=== PATIENT | female | born 1945 | race Caucasian/White ===

== ENCOUNTER → 2017-03-02 | Outpatient (REF) | payer MEDICARE, MEDICAID ==
[2016-10-05 08:12] VITALS: BMI 28.6
[~2017-03-02] MED LIST: ACET-1966 PO; ACET-2007 PO; AMOX1TAB9 PO; ASPI-764 PO; ATOR10TA65 PO; BENZ1LOZ PO; BISA10SU66 PR; CEF300 PO; CEPH-13 PO; CIPR-214 PO; CYC10 PO; DICL-195 PO; DOCU-202 PO; DRON2.5C11 PO; FLUC100T39 PO; GABA-549 PO; HUM100VI2 SUBQ; INDO-1 PO; INSU100V24 SQ; INSU100V24 SUBQ; LIDO76.5 TOP; LOR5/325 PO; MAGN400T36 PO; MELA1TAB38; MELA3TAB PO; METF-410 PO; MOM PO; MULT-1335 PO; NATURAL PO; NYST60PO9 TP; OMEP-125 PO; OMEP-137 PO; ONDA4TAB PO; ONDA4TAB9 PO; OXYC-717 PO; OXYC-865 PO; OXYGENHOME INH; PANT40TA65 PO; PER PO; POLY17PO21 PO; POTA20TA94 PO; PROM12.556 PO; RENATROPHIN PO; SCOT TD; SENN8.6T34 PO; THIA100T58 PO; TRAM-420 PO; TRAM-627 PO; TRAM100T22 PO; [UNRECOGNIZED DRUG - CODE] TP; [UNRECOGNIZED DRUG - OTHER] PO; [UNRECOGNIZED DRUG - OTHER] PO
[2017-03-02 16:18] LABS: LDL CHOLESTEROL 77 mg/dl
== END ==
LOC: ZZLCC 15:41
PROVIDERS: ATTEND Nurse Practitioner Family
DX: D64.9 Anemia, unspecified (principal); E11.9 Type 2 diabetes mellitus without complications
CPT/HCPCS: 82040; 82247; 82310; 82374; 82435; 82465; 82565; 82947; 83036; 83718; 84075; 84132; 84155; 84295; 84443; 84450; 84460; 84478; 84520; 85027

== ENCOUNTER → 2017-06-09 | Outpatient (REF) | payer MEDICARE, MEDICAID ==
[2016-10-05 08:12] VITALS: BMI 28.6
[~2017-06-09] MED LIST changes: -TRAM100T22 PO; +TRAM100T8 PO
[2017-06-09 11:15] LABS: LDL CHOLESTEROL 67 mg/dl
== END ==
LOC: ZZLCC 10:43
PROVIDERS: ATTEND Nurse Practitioner Family
DX: E78.5 Hyperlipidemia, unspecified (principal); E11.9 Type 2 diabetes mellitus without complications
CPT/HCPCS: 82040; 82247; 82310; 82374; 82435; 82465; 82565; 82947; 83036; 83718; 84075; 84132; 84155; 84295; 84450; 84460; 84478; 84520

== ENCOUNTER → 2017-10-11 | Outpatient (REF) | payer MEDICARE, MEDICAID ==
[2016-10-05 08:12] VITALS: BMI 28.6
[~2017-10-11] MED LIST changes: -INDO-1 PO; +INDO-21 PO; -METF-410 PO; +METF-411 PO; +THIA100T20 PO; -THIA100T58 PO
[2017-10-11 12:12] LABS: PLATELET COUNT, AUTOMATED 169 K/uL (150-450)
== END ==
LOC: ZZLCC 11:38
PROVIDERS: ATTEND Nurse Practitioner Family
DX: E11.9 Type 2 diabetes mellitus without complications (principal); E78.5 Hyperlipidemia, unspecified; Z79.899 Other long term (current) drug therapy
CPT/HCPCS: 82040; 82247; 82310; 82374; 82435; 82465; 82565; 82947; 83036; 83718; 84075; 84132; 84155; 84295; 84450; 84460; 84478; 84520; 85025

== ENCOUNTER → 2017-11-08 | Outpatient (REF) | payer MEDICARE, MEDICAID ==
[2016-10-05 08:12] VITALS: BMI 28.6
[~2017-11-08] MED LIST changes: -METF-411 PO; +METF-450 PO
== END ==
LOC: ZZLCC 08:58
PROVIDERS: ATTEND Nurse Practitioner Family
DX: R10.13 Epigastric pain (principal)
CPT/HCPCS: 82040; 82150; 82247; 82310; 82374; 82435; 82565; 82947; 83690; 84075; 84132; 84155; 84295; 84450; 84460; 84520; 85027

== ENCOUNTER → 2017-12-18 | Outpatient (CLI) | payer MEDICARE, MEDICAID ==
[2016-10-05 08:12] VITALS: BMI 28.6
--- NOTE | 2017-12-18 14:12 | RADIOLOGY IMAGING REPORT ---
FACILITY: [facility] PATIENT NAME: Kaitlynn Echeverria : 1945 MR: [id number] V: [id number] EXAM DATE: ORDERING PHYSICIAN: TITA RANKIN TECHNOLOGIST: Location: [facility] Patient: Kaitlynn Echeverria : 1945 Visit/Account:[id number] Date of Sevice: 12/18/2017 WRIST LEFT MIN 3 VIEW COMPARISON: None HISTORY: Left wrist pain for three days with no known injury TECHNIQUE: 3 views of the left wrist were obtained. FINDINGS: BONES: Demineralized suggesting osteopenia or osteoporosis. There is a mild spurring at the distal pole of the scaphoid and there is moderate degenerative narrowing at the triscaphe joint, advanced de generative narrowing at the first CMC joint with [id number] apposition and mild diffuse spurring an d subchondral sclerosis noted. Normal carpal alignment. SOFT TISSUES: Mild generalized soft tissue swelling. Soft tissue calcifications in the projection o f the scapholunate ligament and TFCC which can be seen in the setting of CPPD arthropathy. OTHER: Negative. IMPRESSION: 1. Demineralized bones suggesting osteopenia versus osteoporosis. 2. Moderate degenerative changes at the triscaphe and first CMC joints of the left wrist. 3. Soft tissue calcifications which raises the possibility of CPPD arthropathy. Report Dictated By: Diego Rossi at 12/18/2017 2:06 PM Report E-Signed By: Diego Rossi at 12/18/2017 2:08 PM WSN:[email or web address]
== END ==
LOC: RAD 13:09
PROVIDERS: ATTEND Nurse Practitioner Family
DX: M19.032 Primary osteoarthritis, left wrist (principal)

== ENCOUNTER → 2017-12-20 | Outpatient (REF) | payer MEDICARE, MEDICAID ==
[2016-10-05 08:12] VITALS: BMI 28.6
[~2017-12-20] MED LIST changes: +POLY17PO11 PO; -POLY17PO21 PO; -SENN8.6T34 PO; +SENN8.6T35 PO
[2017-12-20 13:25] LABS: PLATELET COUNT, AUTOMATED 153 K/uL (150-450)
== END ==
LOC: ZZLCC 13:11
PROVIDERS: ATTEND Nurse Practitioner Family
DX: M25.511 Pain in right shoulder (principal); M25.561 Pain in right knee; M25.562 Pain in left knee; G47.00 Insomnia, unspecified; K59.09 Other constipation; L89.302 Pressure ulcer of unspecified buttock, stage 2; R62.7 Adult failure to thrive; R53.1 Weakness; R25.1 Tremor, unspecified; M25.50 Pain in unspecified joint; M15.0 Primary generalized (osteo)arthritis; R49.8 Other voice and resonance disorders; E11.9 Type 2 diabetes mellitus without complications
CPT/HCPCS: 85025

== ENCOUNTER 2018-01-08 12:56 | Inpatient (IN) | payer MEDICARE, MEDICAID ==
[2016-10-05 08:12] VITALS: Ht 172.7 cm; Wt 97.1 kg
[~2018-01-08] VITALS: Ht 172.7 cm; Wt 97.1 kg
[2018-01-08] VITALS (32 sets, daily range): BP systolic 80–123; BP diastolic 38–68
[~2018-01-08 12:56] MED LIST changes: -CARB-71 PO; -CEPH500C24 PO; -DICL100G39 TOP; -POLY17PO25 PO; -[UNRECOGNIZED DRUG - OTHER] PO
--- NOTE | 2018-01-08 12:58 | ER Report ---
History and Physical Time Seen By MD: 12:59 HPI/ROS CHIEF COMPLAINT: Altered mental status HISTORY OF PRESENT ILLNESS: Patient is a 72-year-old female resident of [facility] who was sent from the nursing facility for evaluation for possible sepsis. Over the past 2 days patient has had decreased level of alertness and today started having fever to 103. According to the nursing staff patient usually is conversant and oriented but she is completely unresponsive at this point. To assisted paperwork patient is full code. She needs assistance with most activities daily living but is completely dependent on others for bathing. Patient here is nonverbal. She is unable to provide any useful history. REVIEW OF SYSTEMS: Limited as patient is nonverbal Constitutional: Fever Respiratory: Nursing staff state increased O2 requirements Skin: Sacral decub Allergies: Coded Allergies: Influenza Virus Vaccines (Verified Adverse Reaction, Mild, "I GET EXTREMLY ILL", 02/19/15) Home Meds Active Scripts Tramadol Hcl (TRAMADOL HCL) 50 Mg Tablet, 2 TAB PO BID, #120 TAB 5 Refills Prov:TITA RANKIN APRN FOREIGN EXCHANGE DEALER-C 11/08/17 Cefdinir 300 Mg Cap (OMNICEF 300 MG CAP (OR EQUIV)) 300 Mg Cap, 300 MG PO BID, #10 CAP Prov:DARCIE HE DO 10/07/16 Reported Medications Metformin Hcl (METFORMIN HCL) 500 Mg Tablet, 1 TAB PO BID, TAB 01/15/17 Multivitamin With Minerals (MULTIPLE VITAMIN) 1 Each Tablet, 1 EACH PO DAILY, TAB 10/04/16 Sennosides (SENNA) 8.6 Mg Tablet, 17.2 MG PO m,w,f 10/04/16 Acetaminophen (TYLENOL) 325 Mg Tablet, 650 MG PO Q4H PRN for pain, TAB 10/04/16 Dimethicone/Zinc Oxide (CHARISMA PROTECT CREAM) 142 Gm Cream..g., 142 GM TP bid and prn charisma protect moisture barrier cream to buttock and norbert area BID and prn 10/04/16 Nystatin (NYSTOP) 60 Gm Powder, 60 GM TP BID 10/04/16 Insulin NPH Hum/Reg Insulin Hm (Humulin 70-30 Vial) 100 Unit/Ml (70-30) Vial, 8 UNIT SUBQ with lunch 10/04/16 Melatonin (Melatin) 3 Mg Tablet, 1 TAB PO QHS 10/04/16 [natural ] 1 TAB No Conflict Check, PO BID Medication is called: Natural Neuro Support 10/04/16 Ondansetron (ZOFRAN ODT) 4 Mg Tab.rapdis, 4 MG PO Q12H PRN for NAUSEA, TAB.WILBUR 10/04/16 Atorvastatin Calcium (ATORVASTATIN CALCIUM) 10 Mg Tablet, 1 TAB PO QHS, TAB 10/04/16 Gabapentin (GABAPENTIN) 300 Mg Capsule, 300 MG PO TID, CAPSULE 10/04/16 Omeprazole (OMEPRAZOLE) 20 Mg Capsule.dr, 1 CAP PO QDAY, CAP 10/04/16 Past Medical/Surgical History Patient has a past medical history for stroke in November 2014 history of pneumon ia, history of acute renal failure, history of gout, history of type II diabetes, history of anemia. Patient has a history of cholecystectomy and tubal ligation. Resides at the [facility]. Hx Smoking: No Smoking Status: Never Smoker Hx Substance Use Disorder: No Hx Alcohol Use: No Constitutional Vital Sign - Last 24 Hours 01/08/18 01/08/18 01/08/18 01/08/18 12:56 12:58 13:00 13:11 Pulse 98 98 97 Resp 14 20 15 B/P (MAP) 75/39 75/39 (51) Pulse Ox 92 92 92 O2 Delivery Nasal Cannula Nasal Cannula 01/08/18 01/08/18 01/08/18 01/08/18 13:15 13:26 13:30 13:41 Temp 101.5 Pulse 93 89 Resp 15 12 B/P (MAP) 82/46 (58) 79/49 (59) Pulse Ox 94 93 O2 Delivery Nasal Cannula 01/08/18 01/08/18 01/08/18 01/08/18 13:45 13:50 13:55 13:56 Pulse 91 89 Resp 15 14 B/P (MAP) 80/48 (59) 80/49 (59) Pulse Ox 93 94 O2 Delivery Nasal Cannula 01/08/18 01/08/18 14:00 14:05 Pulse 88 88 Resp 14 14 B/P (MAP) 80/48 (59) 85/53 (64) Pulse Ox 94 95 O2 Delivery Nasal Cannula Nasal Cannula Physical Exam General Appearance: The patient is unresponsive but awake and no obvious signs for airway compromise or respiratory failure Eyes: Pupils equal and round no pallor or injection. ENT, Mouth: Mucous membranes are moist. Dry Respiratory: Lung sounds are distant but no obvious wheezes or rales Cardiovascular: Regular rate and rhythm. Gastrointestinal: Abdomen is soft, protuberant, no masses, bowel sounds normal. Neurological: Patient is obtunded Skin: Hot and dry, stage II sacral decubitus ulcer with surrounding erythema Musculoskeletal: Neck is supple non tender. Extremities are nontender, nonswollen and have full range of motion. Medical Decision Making Data Points Result Diagram: 01/08/18 1252 01/08/18 1252 Laboratory Hematology Test 01/08/18 12:52 01/08/18 13:19 01/08/18 13:26 01/08/18 13:27 Red Blood Count 4.08 M/uL (4.17-5.56) Mean Corpuscular Volume 85.7 fL (80.0-96.0) Mean Corpuscular Hemoglobin 28.1 pg (26.0-33.0) Mean Corpuscular Hemoglobin Concent 32.8 g/dL (32.0-36.0) Red Cell Distribution Width 14.5 % (11.5-14.5) Mean Platelet Volume 6.7 fL (7.2-11.1) Neutrophils (%) (Auto) 93.0 % (39.4-72.5) Lymphocytes (%) (Auto) 2.5 % (17.6-49.6) Monocytes (%) (Auto) 4.4 % (4.1-12.4) Eosinophils (%) (Auto) 0.0 % (0.4-6.7) Basophils (%) (Auto) 0.1 % (0.3-1.4) Nucleated RBC Relative Count (auto) 0.0 /100WBC Neutrophils # (Auto) 17.5 K/uL (2.0-7.4) Lymphocytes # (Auto) 0.5 K/uL (1.3-3.6) Monocytes # (Auto) 0.8 K/uL (0.3-1.0) Eosinophils # (Auto) 0.0 K/uL (0.0-0.5) Basophils # (Auto) 0.0 K/uL (0.0-0.1) Nucleated RBC Absolute Count (auto) 0.00 K/uL Prothrombin Time 15.9 seconds (12.0-14.4) Prothromb Time International Ratio 1.26 Activated Partial Thromboplast Time 37 seconds (23-35) Sodium Level 141 mmol/L (137-145) Potassium Level 5.3 mmol/L (3.5-5.0) Chloride Level 107 mmol/L (98-107) Carbon Dioxide Level 27 mmol/L (22-31) Blood Urea Nitrogen 34 mg/dl (7-18) Creatinine 1.70 mg/dl (0.52-1.04) Glomerular Filtration Rate Calc 29.6 Random Glucose 198 mg/dl (75-110) Lactate 1.1 mmol/L (0.7-2.1) Calcium Level 8.4 mg/dl (8.4-10.2) Total Bilirubin 0.6 mg/dl (0.2-1.3) Aspartate Amino Transf (AST/SGOT) 27 U/L (0-35) Alanine Aminotransferase (ALT/SGPT) 16 U/L (0-56) Alkaline Phosphatase 78 U/L (0-126) Total Creatine Kinase 359 U/L (30-135) Total Protein 5.6 g/dl (6.3-8.2) Albumin 2.7 g/dl (3.5-5.0) Stool Occult Blood (IFOB) Negative (NEGATIVE) Influenza Virus Type A (PCR) Negative (NEGATIVE) Influenza Virus Type B (PCR) Negative (NEGATIVE) Urine Color Johana Urine Clarity Turbid Urine pH 5.0 pH (4.8-9.5) Urine Specific [place] 1.021 Urine Protein 100 mg/dL (NEGATIVE) Urine Glucose (UA) Negative mg/dL (NEGATIVE) Urine Ketones Trace mg/dL (NEGATIVE) Urine Blood Moderate (NEGATIVE) Urine Nitrite Negative (NEGATIVE) Urine Bilirubin Small (NEGATIVE) Urine Urobilinogen 4.0 mg/dL (0.2-1.9) Urine Leukocyte Esterase Moderate (NEGATIVE) Urine RBC 75 /HPF (0-2/HPF) Urine WBC 1093 /HPF (0-5/HPF) Urine WBC Clumps Many /HPF Urine Squamous Epithelial Cells Many /LPF (NONE-FEW) Urine Bacteria Many /HPF (NONE-FEW) Urine Mucus None /HPF (NONE-FEW) Chemistry Test 01/08/18 12:52 01/08/18 13:19 01/08/18 13:26 11/27/18 13:27 White Blood Count 18.8 k/uL (4.5-11.0) Red Blood Count 4.08 M/uL (4.17-5.56) Hemoglobin 11.5 g/dL (12.0-16.0) Hematocrit 35.0 % (34.0-47.0) Mean Corpuscular Volume 85.7 fL (80.0-96.0) Mean Corpuscular Hemoglobin 28.1 pg (26.0-33.0) Mean Corpuscular Hemoglobin Concent 32.8 g/dL (32.0-36.0) Red Cell Distribution Width 14.5 % (11.5-14.5) Platelet Count 151 K/uL (150-450) Mean Platelet Volume 6.7 fL (7.2-11.1) Neutrophils (%) (Auto) 93.0 % (39.4-72.5) Lymphocytes (%) (Auto) 2.5 % (17.6-49.6) Monocytes (%) (Auto) 4.4 % (4.1-12.4) Eosinophils (%) (Auto) 0.0 % (0.4-6.7) Basophils (%) (Auto) 0.1 % (0.3-1.4) Nucleated RBC Relative Count (auto) 0.0 /100WBC Neutrophils # (Auto) 17.5 K/uL (2.0-7.4) Lymphocytes # (Auto) 0.5 K/uL (1.3-3.6) Monocytes # (Auto) 0.8 K/uL (0.3-1.0) Eosinophils # (Auto) 0.0 K/uL (0.0-0.5) Basophils # (Auto) 0.0 K/uL (0.0-0.1) Nucleated RBC Absolute Count (auto) 0.00 K/uL Prothrombin Time 15.9 seconds (12.0-14.4) Prothromb Time International Ratio 1.26 Activated Partial Thromboplast Time 37 seconds (23-35) Glomerular Filtration Rate Calc 29.6 Lactate 1.1 mmol/L (0.7-2.1) Calcium Level 8.4 mg/dl (8.4-10.2) Total Bilirubin 0.6 mg/dl (0.2-1.3) Aspartate Amino Transf (AST/SGOT) 27 U/L (0-35) Alanine Aminotransferase (ALT/SGPT) 16 U/L (0-56) Alkaline Phosphatase 78 U/L (0-126) Total Creatine Kinase 359 U/L (30-135) Total Protein 5.6 g/dl (6.3-8.2) Albumin 2.7 g/dl (3.5-5.0) Stool Occult Blood (IFOB) Negative (NEGATIVE) Influenza Virus Type A (PCR) Negative (NEGATIVE) Influenza Virus Type B (PCR) Negative (NEGATIVE) Urine Color Johana Urine Clarity Turbid Urine pH 5.0 pH (4.8-9.5) Urine Specific [place] 1.021 Urine Protein 100 mg/dL (NEGATIVE) Urine Glucose (UA) Negative mg/dL (NEGATIVE) Urine Ketones Trace mg/dL (NEGATIVE) Urine Blood Moderate (NEGATIVE) Urine Nitrite Negative (NEGATIVE) Urine Bilirubin Small (NEGATIVE) Urine Urobilinogen 4.0 mg/dL (0.2-1.9) Urine Leukocyte Esterase Moderate (NEGATIVE) Urine RBC 75 /HPF (0-2/HPF) Urine WBC 1093 /HPF (0-5/HPF) Urine WBC Clumps Many /HPF Urine Squamous Epithelial Cells Many /LPF (NONE-FEW) Urine Bacteria Many /HPF (NONE-FEW) Urine Mucus None /HPF (NONE-FEW) Coagulation Test 01/08/18 12:52 Prothrombin Time 15.9 seconds Prothromb Time International Ratio 1.26 Activated Partial Thromboplast Time 37 seconds Urinalysis Test 01/08/18 13:27 Urine Color Johana Urine Clarity Turbid Urine pH 5.0 pH (4.8-9.5) Urine Specific [place] 1.021 Urine Protein 100 mg/dL (NEGATIVE) Urine Glucose (UA) Negative mg/dL (NEGATIVE) Urine Ketones Trace mg/dL (NEGATIVE) Urine Blood Moderate (NEGATIVE) Urine Nitrite Negative (NEGATIVE) Urine Bilirubin Small (NEGATIVE) Urine Urobilinogen 4.0 mg/dL (0.2-1.9) Urine Leukocyte Esterase Moderate (NEGATIVE) Urine RBC 75 /HPF (0-2/HPF) Urine WBC 1093 /HPF (0-5/HPF) Urine WBC Clumps Many /HPF Urine Squamous Epithelial Cells Many /LPF (NONE-FEW) Urine Bacteria Many /HPF (NONE-FEW) Urine Mucus None /HPF (NONE-FEW) EKG/Imaging EKG Interpretation EKG shows sinus rhythm with a ventricular rate of 94 bpm. Monitor Interpretation: Normal Sinus Rhythm ED Course/Re-evaluation Clinical Indication for ER IV: IV Access ED Course 01/08/2018 1:36:15 pm plan at this time will be to initiate sepsis protocol we will give 30 mL/kg bolus of normal saline. We will give her broad-spectrum antibiotics we will draw blood cultures urine culture and chest x-ray. 01/08/2018 2:22:49 pm Procedure: Central line placement. Procedure is emergent; maximal sterile barrier technique was uses including cap, gown, sterile gloves, large sheet, hand washing and chlorhexidine prep. The area anesthetized with 1% lidocaine. The right internal jugular vein approach using ultrasound guidance was done. Multiple attempts attempts were made however it appeared based on the pulsatile blood flow and color blood that the internal carotid artery was mistakenly cannulated instead of the internal jugular. Despite different positioning attempts to continue use of the ultra sound the result was the same each time the blood appeared arterial. We felt that the we were in the correct spot as we clearly could identify the pulsatile internal carotid artery on ultrasound as well as the ovoid shaped compressible internal jugular vein. Unfortunately we are unable to obtain central venous access. Because we are unable to achieve access and multiple attempts being made and we decided to hold off on further attempts as this could be harmful to the patient. Postop. Chest x-ray was performed no PTX was seen. Patient was started on 5 mics of levophed peripherally with improvement in blood pressure and mentation. Daughter at the bedside and has been made aware of scenario and that she will be admitted to the ICU. Case was discussed with DR He, history, PE., Labs, imaging studies and entire ED course including failed central line and that we started peripheral levophed at 5 mcg/min Decision to Disposition Date: Jan 08, 2018 Decision to Disposition Time: 14:58 Depart Departure Latest Vital Signs Vital Signs Date Time Temp Pulse Resp B/P (MAP) Pulse Ox O2 Delivery O2 Flow Rate FiO2 01/08/18 14:05 88 14 85/53 (64) 95 Nasal Cannula 01/08/18 13:41 101.5 Impression: Primary Impression: Sepsis Condition: Improved Disposition: Admitted from ER (to ICU with DR He) Referrals: DENZEL MOTA MD (PCP) Problem Qualifiers Primary Impression: Sepsis Sepsis type: sepsis due to unspecified organism Qualified Codes: A41.9 - Sepsis, unspecified organism BLU DUNN MD Jan 08, 2018 12:58
[2018-01-08] MEDS ORDERED: ACETAMINOPHEN 120 MG SUPP PR ONE (13:16)
[2018-01-08] MEDS ORDERED: CEFEPIME HCL 2 GM VIAL IVP ONE (13:20)
[2018-01-08] MEDS ORDERED: VANCOMYCIN 1 GM ADDVIAL 1 GM in NS(*) 0.9% 250 ML ADDVAN BAG 250 ML IVPB ONE (13:20)
[2018-01-08] MEDS ORDERED: metroNIDAZOLE* 500MG/100ML BAG 100 ML IVPB ONE (13:20)
[2018-01-08 13:27] LABS: PLATELET COUNT, AUTOMATED 151 K/uL (150-450)
--- NOTE | 2018-01-08 13:28 | EKG ---
FACILITY: [facility] PATIENT NAME: MAURA HORN : [id number] MR: [id number] V: [id number] EXAM DATE: ORDERING PHYSICIAN: BLU DUNN TECHNOLOGIST: Test Reason : Blood Pressure : / mmHG Vent. Rate : 094 BPM Atrial Rate : 094 BPM P-R Int : 150 ms QRS Dur : 086 ms QT Int : 362 ms P-R-T Axes : 069 020 052 degrees QTc Int : 452 ms Normal sinus rhythm Normal ECG When compared with ECG of 05-OCT-2016 10:59, Vent. rate has increased BY 37 BPM Confirmed by DARCIE HE ([id number]) on 01/09/2018 6:20:15 AM Referred By: Confirmed By:DARCIE HE
[2018-01-08 13:41] LABS: INR 1.26
[2018-01-08] MEDS ORDERED: EMS NS 0.9%(*) 1000 ML BAG 1,000 ML IV ONE (14:00)
[2018-01-08] MEDS ORDERED: NS(*) 0.9% 1000 ML BAG 1,000 ML IV ONE ×4 (14:00→17:15)
[2018-01-08] MEDS ORDERED: NOREPINE BITAR* 4 MG/4 ML AMP 8 MG in D5W(*) 500 ML BAG 492 ML IV PRN ×2 (14:10→14:15)
[2018-01-08] MEDS ORDERED: VANCOMYCIN(*) 1 GM VIAL 1 GM, VANCOMYCIN (*) 0.5 GM VIAL 0.5 GM in NS(*) 0.9% 250 ML BA... IVPB ONE (14:45)
--- NOTE | 2018-01-08 15:09 | RADIOLOGY IMAGING REPORT ---
FACILITY: [facility] PATIENT NAME: Kaitlynn Echeverria : 1945 MR: [id number] V: [id number] EXAM DATE: ORDERING PHYSICIAN: BLU DUNN TECHNOLOGIST: Location: [facility] Patient: Kaitlynn Echeverria : 1945 Visit/Account:[id number] Date of Sevice: 01/08/2018 Exam type: CHEST SINGLE AP History: SEPSIS Comparison: October 03, 2016. Findings: There is patchy airspace consolidation in the medial left lung base which was not present previously. Prominent central pulmonary arteries again seen. There is cardiomegaly present with moderate ectas ia the thoracic aorta. The mediastinum also appears somewhat widened. This could be related to this supine portable nature of the examination although an upright AP or PA view the chest is recommended for further evaluation IMPRESSION: 1. Patchy airspace consolidation the medial left lung base worrisome for infiltrate and/or atelectas is The mediastinum appears widened which could be related to technical factors however a repeat upright PA or AP view the chest recommended Results were called to BLU DUNN at 01/08/2018 3:05 PM. Report Dictated By: Verona Hagen MD at 01/08/2018 3:01 PM Report E-Signed By: Verona Hagen MD at 01/08/2018 3:05 PM WSN:[email or web address]
--- NOTE | 2018-01-08 15:31 | RADIOLOGY IMAGING REPORT ---
FACILITY: [facility] PATIENT NAME: Kaitlynn Echeverria : 1945 MR: [id number] V: [id number] EXAM DATE: [id number] ORDERING PHYSICIAN: BLU DUNN TECHNOLOGIST: Location: [facility] Patient: Kaitlynn Echeverria : 1945 Visit/Account:[id number] Date of Sevice: 01/08/2018 Exam type: CHEST SINGLE AP History: Repeat for mediastinal widening and attempted right IJ placement Comparison: January 08, 2018 at 2:15 PM. Findings: Repeat portable upright AP view the chest reveals mild consolidation in the medial left lung base lik ben related to infiltrate and/or atelectasis. There is no evidence of a pneumothorax. The cardiac s ilhouette now appears normal in size. The mediastinum appears less widened which was likely related to the supine nature of the examination on the previous study. IMPRESSION: 1. Small amount of airspace consolidation in the medial left lung base likely related infiltrate and /or atelectasis No evidence of pneumothorax Mediastinum appears less widened and was likely related to the supine nature the prior examination Report Dictated By: Verona Hagen MD at 01/08/2018 3:25 PM Report E-Signed By: Verona Hagen MD at 01/08/2018 3:27 PM WSN:[email or web address]
[2018-01-08] MEDS ORDERED: NOREPINE BITAR* 4 MG/4 ML AMP 4 MG in D5W(*) 250 ML BAG 246 ML IV PRN (16:55)
--- NOTE | 2018-01-08 17:11 | History & Physical ---
History of Present Illness Chief Complaint Altered mental status History of Present Illness This patient did present with reports of altered mental status. Her daughter reports that she was acting normal last night. She is not complaining of any specific symptoms, but the daughter reports that she has been coughing more frequently. History Problems: (1) Cerebrovascular disease Status: Chronic (2) Type 2 diabetes mellitus Status: Chronic (3) Status post cholecystectomy Status: Chronic Home Meds Active Scripts Tramadol Hcl (TRAMADOL HCL) 50 Mg Tablet, 2 TAB PO BID, #120 TAB 5 Refills Prov:TITA RANKIN APRN SCOURING TRAIN OPERATOR CHIEF-C 11/08/17 Cefdinir 300 Mg Cap (OMNICEF 300 MG CAP (OR EQUIV)) 300 Mg Cap, 300 MG PO BID, #10 CAP Prov:DARCIE HE DO 10/07/16 Reported Medications Metformin Hcl (METFORMIN HCL) 500 Mg Tablet, 1 TAB PO BID, TAB 01/15/17 Multivitamin With Minerals (MULTIPLE VITAMIN) 1 Each Tablet, 1 EACH PO DAILY, TAB 10/04/16 Sennosides (SENNA) 8.6 Mg Tablet, 17.2 MG PO m,w,f 10/04/16 Acetaminophen (TYLENOL) 325 Mg Tablet, 650 MG PO Q4H PRN for pain, TAB 10/04/16 Dimethicone/Zinc Oxide (CHARISMA PROTECT CREAM) 142 Gm Cream..g., 142 GM TP bid and prn charisma protect moisture barrier cream to buttock and norbert area BID and prn 10/04/16 Nystatin (NYSTOP) 60 Gm Powder, 60 GM TP BID 10/04/16 Insulin NPH Hum/Reg Insulin Hm (Humulin 70-30 Vial) 100 Unit/Ml (70-30) Vial, 8 UNIT SUBQ with lunch 10/04/16 Melatonin (Melatin) 3 Mg Tablet, 1 TAB PO QHS 10/04/16 [natural ] 1 TAB No Conflict Check, PO BID Medication is called: Natural Neuro Support 10/04/16 Ondansetron (ZOFRAN ODT) 4 Mg Tab.rapdis, 4 MG PO Q12H PRN for NAUSEA, TAB.WILBUR 10/04/16 Atorvastatin Calcium (ATORVASTATIN CALCIUM) 10 Mg Tablet, 1 TAB PO QHS, TAB 10/04/16 Gabapentin (GABAPENTIN) 300 Mg Capsule, 300 MG PO TID, CAPSULE 10/04/16 Omeprazole (OMEPRAZOLE) 20 Mg Capsule., 1 CAP PO QDAY, CAP 10/04/16 Allergies: Coded Allergies: Influenza Virus Vaccines (Verified Adverse Reaction, Mild, "I GET EXTREMLY ILL", 02/19/15) Patient History: Patient reports no known family medical history. Hx Smoking: No Smoking Status: Never Smoker Caffeine Intake: Soda Hx Alcohol Use: No Hx Substance Use Disorder: No Review of Systems All Systems Reviewed/Normal: Yes, Except as Noted Respiratory: Cough Exam Vital Signs Vital Signs Date Time Temp Pulse Resp B/P (MAP) Pulse Ox O2 Delivery O2 Flow Rate FiO2 01/08/18 16:21 94 Nasal Cannula 4.0 01/08/18 15:35 87 14 01/08/18 15:30 99/56 (70) 01/08/18 13:41 101.5 Neuro: No Gross deficits Eyes: PERRLA Cardiovascular: Regular Rate and Rhythm Respiratory: Clear to Auscultation GI: Abd Soft and Non-Tender Extremities: No Edema Integumentary: No Cyanosis Medical Decision Making Data Points Result Diagram: 01/08/18 1252 01/08/18 1252 EKG / Imaging Imaging Chest x-ray reviewed. Assessment and Plan Problems: (1) Septic shock Assessment & Plan: She was found to have a fever and elevated WBC. She was also hypotensive on admission, and was started on vasopressors in the emergency department. The etiology is unclear at this time, but we suspect either a respiratory of urinary source. Her x-ray does show some faint findings, but no gross infiltrate. Her urine has leukocytes and bacteria, but is a contaminated sample. We will repeat a urine and chest x-ray. She has been started on empiric treatment with cefepime and azithromycin. We have also started her on steroids for vasopressor dependent shock. (2) Decubital ulcer Assessment & Plan: She does have a large non-stageable wound on the sacrum. A wound care consult has been ordered. (3) Type 2 diabetes mellitus Status: Chronic Assessment & Plan: We have placed her on sliding scale level #2. Copies to: DENZEL MOTA MD ; Venous Thromboembolism Antithrombotics Is Pt On Any Antithrombotics?: No Exam Sepsis Risk: No Definite Risk DARCIE HE DO Jan 08, 2018 17:11
[2018-01-08] MEDS ORDERED: POLY17PO25 PO (17:14)
[2018-01-08] MEDS ORDERED: DICL100G39 TOP (17:14)
[2018-01-08] MEDS ORDERED: [UNRECOGNIZED DRUG - OTHER] PO (17:14)
[2018-01-08] MEDS ORDERED: CARB-71 PO (17:14)
[2018-01-08] MEDS: HYDROCORTISONE 100 MG/2 ML IVP SCH (17:35)
[2018-01-08] MEDS: AZITHROMYCIN(*) 500 MG 500 MG in NS(*) 0.9% 250 ML BAG 250 ML IVPB SCH (17:47)
[2018-01-08] MEDS: INSULIN HUM LISPRO 100 UN/ML 3 ML VIAL SUBQ PRN (20:37)
[2018-01-09] VITALS (96 sets, daily range): BP systolic 95–134; BP diastolic 52–74
[2018-01-09] MEDS: NS(*) 0.9% 1000 ML BAG 1,000 ML IV PRN (00:27)
[2018-01-09] MEDS: HYDROCORTISONE 100 MG/2 ML IVP SCH ×3 (00:28→16:41)
[2018-01-09] MEDS: CEFEPIME HCL 2 GM VIAL 2 GM in NS(*) 0.9% 100 ML BAG 100 ML IVPB SCH ×2 (00:57→13:39)
[2018-01-09] MEDS: INSULIN HUM LISPRO 100 UN/ML 3 ML VIAL SUBQ PRN ×4 (01:41→23:37)
[2018-01-09 05:47] LABS: PLATELET COUNT, AUTOMATED 159 K/uL (150-450)
--- NOTE | 2018-01-09 06:32 | RADIOLOGY IMAGING REPORT ---
FACILITY: [facility] PATIENT NAME: Kaitlynn Echeverria : 1945 MR: [id number] V: [id number] EXAM DATE: ORDERING PHYSICIAN: DARCIE HE TECHNOLOGIST: Location: [facility] Patient: Kaitlynn Echeverria : 1945 Visit/Account:[id number] Date of Sevice: 01/09/2018 PORTABLE CHEST: Indication: Sepsis. Technique: A single frontal film was obtained. Comparison: 10/03/2016 Skeletal and soft tissue structures: Intact and unchanged. Heart and mediastinum: Within normal limits for portable technique. Lung escobar: Fairly well expanded. No focal consolidation or volume loss is identified. There is no v ascular congestion. Pleural spaces: Unremarkable. Impression: No acute process is identified. Report Dictated By: Ed Vela MD at 01/09/2018 6:26 AM Report E-Signed By: Ed Vela MD at 01/09/2018 6:28 AM WSN:[id number]
[2018-01-09] MEDS: LR(*) 1000 ML BAG 1,000 ML IV PRN ×2 (08:39→16:40)
[2018-01-09] MEDS: ENOXAPARIN 40 MG/0.4ML SYR SC SCH (08:42)
[2018-01-09] MEDS ORDERED: GABA-549 PO (12:09)
--- NOTE | 2018-01-09 12:29 | Medical Nutrition Therapy ---
Nutrition Anthropometrics Height (Inches): 68.00 Height (Calculated Centimeters: 172.212444 Weight (Pounds): 196 Weight (Calculated Kilograms): 88.904 BMI: 29.8 Miguel Nutrition Score: Very Poor Miguel Nutrition Risk Score: 10 Dietary Referral Nutrition Risk Factors: Nutrition Risk Comment: Physical Findings Physical Appearance: Overweight BMI 25-29 Skin Appearance Skin Appearance: Edema Edema Location Modifier: Both Edema Location: Lower Extremity Type of Edema: Degree of Edema: Gastrointestinal Symptoms GI Symtoms: Tube Present: Bowel Sounds: Recent Bowel Pattern: Stool Characteristics: Nutritional Diagnosis Nutritional Risk Acuity 2: Sepsis Nutritional Risk Acuity 3: ST I/II Pressure Ulcer Past Medical History: Hx CVA, T2DM, pneumonia, cholecystectomy, kidney stones, knee pain, gout, osteoarthritis. Nutritional Acuity: 2-Moderate Nutrition Diagnosis: Increased Nutrient Needs Nutrition Etiology: Physiological Causes Nutrition Problem/Etiology/Sym: Increased nutrient needs r/t physiological causes AEB Alb 2.7, total protein 5.7. Energy Requirement: 1730 ([place] adj for obesity * 1.3) Protein Requirement: 90 (1g/kg) Fluid Requirement: 2225 (25ml/kg) Diet Type: Diabetic Nutrition Intervention: Cont diet as ordered, Encourage intake Additional Diet Restrictions: Add protein powder to appropriate foods Diet Comment To [facility]: OFFER NUTR SUPPLEMENT Nutrition Monitoring & Eval Nutrition Goals: Eat 75-100% Meal, Drink > 1500 cc/day RD Patient Assessment Time: [address] Assessment Type: RD Assessment Patient Nutrition Acuity: 2-Moderate Follow Up Date: Jan 12, 2018 Nutritional Comment: 01/09 Pt admitted for septic shock, hypotensive, and a decubital ulcer. Hx CVA, T2DM, pneumonia, cholecystectomy, kidney stones, knee pain, gout, osteoarthritis. Pt on Diabetic diet. BG elevated ranging from 180-205. Elevated WBC at 18, BUN of 36, Creatinine at 1.5. K+ was elevated at admission but down WNL. Low levels of RBC of 4.12, Hgb at 11.6, alb 2.7, total protein at 5.6. Will offer nutr supplement. Total Creatinine kinase very elevated at 359. Will follow labs and PO intake. NAIDA CASILLAS Jan 09, 2018 08:50
--- NOTE | 2018-01-09 15:14 | Hospitalist Progress Note ---
Subjective Progress Notes Subjective 72F admitted for septic shock. BP improved, still small amount vasopressor to maintain UOP. Will decrease slowly today. Physical Exam Vital Signs Date Time Temp Pulse Resp B/P (MAP) Pulse Ox O2 Delivery O2 Flow Rate FiO2 01/09/18 12:30 62 10 123/64 (83) 88 Room Air 01/09/18 12:00 97.8 01/09/18 11:10 2.0 Intake and Output 01/09/18 06:58 Intake Total 16665 ml Output Total 332 ml Balance 94894 ml Intake Oral 0 ml IV Total 40824 ml Output Urine Total 332 ml Emesis 0 ml # Voids 1 # Bowel Movements 0 General Appearance: No Acute Distress, Afebrile Neuro: No Gross deficits ENT: Normal Cardiovascular: Normal Rhythm & Peripheral Pulses Respiratory: No Respiratory Distress Extremities: Soft and Non Tender, Warm, Pulses, Perfused Integumentary: Other (unstagable pressure wound on coccyx) Result Diagram: 01/09/18 0542 01/09/18 0542 Monitor Interpretation: Normal Sinus Rhythm Assessment and Plan Problems: (1) Septic shock Assessment & Plan: She was found to have a fever and elevated WBC. She was also hypotensive on admission, and was started on vasopressors in the emergency department. The etiology is unclear at this time, but we suspect either a respiratory of urinary source. Her x-ray does show some faint findings, but no gross infiltrate. Her urine has leukocytes and bacteria, but is a contaminated sample. Blood culture growing GNR. She has been started on empiric treatment with cefepime and azithromycin. On steroids for vasopressor dependent shock. Will await culture result. (2) Gram-negative bacteremia Assessment & Plan: Suspect secondary to urinary source, lung possible as well. Treatment as above. (3) Decubital ulcer Assessment & Plan: She does have a large non-stageable wound on the sacrum. A wound care consult has been ordered. (4) Type 2 diabetes mellitus Status: Chronic Assessment & Plan: We have placed her on sliding scale level #2. Exam Sepsis Risk: No Definite Risk BAPTISTE MOMONSTER Jan 09, 2018 15:14
[2018-01-09] MEDS: AZITHROMYCIN(*) 500 MG 500 MG in NS(*) 0.9% 250 ML BAG 250 ML IVPB SCH (18:25)
[2018-01-09] MEDS: ACETAMINOPHEN(*)1000 MG/100 ML 100 ML IVPB PRN (23:37)
[2018-01-10] VITALS (40 sets, daily range): BP systolic 94–140; BP diastolic 49–87
[2018-01-10] MEDS: CEFEPIME HCL 2 GM VIAL 2 GM in NS(*) 0.9% 100 ML BAG 100 ML IVPB SCH (01:13)
[2018-01-10] MEDS: HYDROCORTISONE 100 MG/2 ML IVP SCH ×3 (01:14→17:28)
[2018-01-10] MEDS: LR(*) 1000 ML BAG 1,000 ML IV PRN (01:19)
[2018-01-10 05:46] LABS: PLATELET COUNT, AUTOMATED 136 K/uL (150-450)
[2018-01-10] MEDS: INSULIN HUM LISPRO 100 UN/ML 3 ML VIAL SUBQ PRN ×3 (06:13→19:12)
[2018-01-10] MEDS: ENOXAPARIN 40 MG/0.4ML SYR SC SCH (08:57)
[2018-01-10] MEDS ORDERED: GI COCKTAIL 60 ML BTL PO PRN (09:25)
--- NOTE | 2018-01-10 09:25 | Hospitalist Progress Note ---
Subjective Progress Notes Subjective Answers some questions. Not reporting pain or nausea. Very sleepy for staff earlier. Off Levophed since about 1930. Physical Exam Vital Signs Date Time Temp Pulse Resp B/P (MAP) Pulse Ox O2 Delivery O2 Flow Rate FiO2 01/10/18 08:00 62 16 97/50 (66) 90 Nasal Cannula 2.0 01/10/18 07:23 98.6 Intake and Output 01/10/18 06:58 Intake Total 3792 ml Output Total 645 ml Balance 3147 ml Intake Oral 360 ml IV Total 3432 ml Output Urine Total 645 ml General Appearance: No Acute Distress, Other (Awakened easily. Breathing comfortably) Cardiovascular: Regular Rate and Rhythm Respiratory: Clear to Auscultation GI: Other (Soft, non-distended, possibly some discomfort with palpation.) Extremities: No Edema Result Diagram: 01/10/18 0538 01/10/18 0537 Monitor Interpretation: Normal Sinus Rhythm Assessment and Plan Problems: (1) UTI (urinary tract infection) Status: Acute Assessment & Plan: She presented with decreased MS, fever, ARF, elevated WBC and hypotension. Urine growing GNR and GPC. Will recheck UA and UCx because of concern of contamination. Now just on ceftriaxone. WBC trending down and afebrile since admission. Mental status improving. See below. (2) Septic shock Status: Resolved Assessment & Plan: She was also hypotensive on admission, and was started on vasopressors in the emergency department. Her x-ray does show some faint findings, but no gross infiltrate. Blood culture growing E. Coli and urine with GPC and GNR. She was started on empiric treatment with cefepime and azithromycin. Azithromycin stopped today. On steroids for vasopressor dependent shock, but will not begin tapering because of borderline low BP. (3) Acute renal failure Status: Acute Assessment & Plan: Secondary to sepsis. Improving, but not to baseline. Continue hydration. (4) Decubital ulcer Assessment & Plan: She does have a large non-stageable wound on the sacrum. A wound care consult has been ordered. (5) Type 2 diabetes mellitus Status: Chronic Assessment & Plan: We have placed her on sliding scale level #2. (6) CVA (cerebral vascular accident) Status: Chronic Assessment & Plan: CVA X 2 11/26 - nystagmus and dizziness, acute ischemic mid- brain stroke (7) Parkinsonian syndrome Status: Chronic Assessment & Plan: It appears that she was started on Sinemet in the last month. Currently, it is on hold secondary to risk of aspiration from decreased mental status. (8) Pain Status: Chronic Assessment & Plan: Chronically on Gabapentin for unclear reasons. Currently, it is on hold secondary to risk of aspiration from decreased mental status. Exam Sepsis Risk: No Definite Risk STEPHANIE JOE MD Jan 10, 2018 09:25
--- NOTE | 2018-01-10 09:29 | Antimicrobial Stewardship ---
Antimicrobial Stewardship Empiricly appropriate: Yes Significant PMH: Yes (CVA, ARF, Gout, DM2, anemia) Support empiric regimen: Yes Comment Broad Spectrum Abx started in the ED Approriate Cultures done: Yes (01/08/18 Blood Cx and Urine Cx obtained) Gram stain show Microbs: Yes (Blood Cx - 3/4 bottles growing GNR, Urine Cx- GNR, GPC both >100,000cfu (no GPC in blood cx)) Organism identified: Yes (Blood Cultures 3/4 bottles GNR- e.coli (R-ampicillin, ampicillin/sulbactam, Quinolones, Aminoglycosides), Urine Cx pending) Review the antibiotic sensitiv: Yes (Reviewed Abx, Cultures and Sensitivity- De-escalated from Cefepime to ceftriaxone) Renal/Hepatic dosing: Yes Appropriate dose for site: Yes Monitored for Toxicities: Yes Clinically stable/improving: Yes (Pt improving, no longer on pressors) IV to PO Opportunity: No Determine cumulative duration: 01/08 antibiotics started, day 3 Determine standard duration: 10-14d for urosepsis GNR Comment 72 yo F who resides at [facility] who was brought to the ED secondary to AMS. Upon arrival to the ED Tmax 101.5, WBC elevated 18.8, Lactate 1.1, P 50-60s, BP 70-80s/30-50s (MAP< 65). 01/08- UA with >1000 WBCs, (+) sq epis, (+) RBC, (+) leuk esterase 01/08- Urine Cx - (+) GPC >100,000cfu, (+) GNR >100,000cfu 01/08- Blood Cx - (+) GNR- e.coli - (R) to: ampicillin, ampicillin/sulbactam, quinolones, aminoglycosides (S) to: cephalosporins 01/08- Lactate 1.1 Chest xray- no acute process, pt with risk factors for aspiration- will watch closely Antibiotic History: 01/08: Vancomycin 2.5g IV total x1, Flagyl 500mg IV x 1, Cefepime 2g IV x 1 all given in the ED 01/08: Started on the floor: Cefepime 2g IV Q12H 01/10: Switched to Ceftriaxone 2g IV Q24H--> de-escalated based on cultures, watch closely Plan: Continue Ceftriaxone, today is day 1, but day 3 of antibiotics, continue for GNR bacteremia/urosepsis for 10-14days. No longer on pressors, clinically improving. Afebrile now with decreasing WBC (on Hydrocortisone--will continue for now). Plan for 10-14 days of antibiotics. Betty Barkley, PharmD, OP BETTY BARKLEY Jan 10, 2018 09:29
[2018-01-10] MEDS: PANTOPRAZOLE SOD 40 MG IV VIAL IVP SCH (09:32)
--- NOTE | 2018-01-10 09:38 | EKG ---
FACILITY: [facility] - [place] PATIENT NAME: MAURA HORN : [id number] MR: [id number] V: [id number] EXAM DATE: ORDERING PHYSICIAN: STEPHANIE JOE TECHNOLOGIST: WILLIAM Andrews Reason : CP Blood Pressure : / mmHG Vent. Rate : 066 BPM Atrial Rate : 066 BPM P-R Int : 156 ms QRS Dur : 094 ms QT Int : 414 ms P-R-T Axes : 064 029 018 degrees QTc Int : 434 ms Normal sinus rhythm T flattening/inversion consistent with inferior ischemia vs normal variant Compared to previous, now with changes consistent with inferior ischemia vs normal variant Confirmed by STEPHANIE JOE ([id number]) on 01/10/2018 4:13:10 PM Referred By: ILIANA Confirmed By:STEPHANIE JOE
[2018-01-10] MEDS: NS(*) 0.9% 1000 ML BAG 1,000 ML IV PRN ×2 (10:19→18:05)
--- NOTE | 2018-01-10 13:22 | SLP BEDSIDE SWALLOW EVALUATION ---
CLINICAL DYSPHAGIA guest specialist: Carolyn Lebron MS, [facility]-WIRE COATING MACHINE OPERATOR Type of Assessment: Bedside Dysphagia Evaluation Patient: Kaitlynn Echeverria : [birth year], 80 yo Evaluation Date: 01/09/2018 BACKGROUND The patient is a 80 year old female w/ pmhx significant for CVA in 2014 who currently resides at the [facility]. She was hospitalized with altered mental status and septic shock due to urinary tract infection. Per family report, the pt consumes a regular diet and thin liquids at baseline. The patient also participated in a modified barium swallow study in December of 2015 due to physician concerns for aspiration. Results illustrated trace aspiration of thin liquids without attempted cough response or attempt to clear. Aspiration occurred 2/2 delayed initiation of swallow. Primary Medical Diagnosis: UTI Past Medical History: decubital ulcer, DM2, CVA, parkinsonian syndrome, pain Pain Scale (0-10): patient w/ no reports of pain. LOC / Participation: alert with verbal and tactile cueing, cooperative, delayed processing speed. Follows Instructions: single level only Orientation: A&O to self, caregivers Functional Communication Deficits impact swallow function/safety, or response to therapy: Yes. Pt with delirium. Difficulty following complex commands. Decreased orientation to current situation. Will benefit from constant supervision and feeding assistance with PO intake. ASSESSMENT Sialorrhea: No Xerostomia: No Supplemental Oxygen Use: No COPD Dx: No Pain with Swallow: Denies Pt was seen at the bedside for clinical swallowing assessment with [id number] presnt throughout majority of procedures. Pt was somnolent, but maintained alertness with continuous verbal stimuli. Oromotor exam was remarkable for edentulism with upper dentures placed prior to initiation of PO intake. Pt also with significant L-sided lean (residual effects of midbrain CVA). Speech was dysarthric with decreased speaking rate, slowed and laborious oromotor movements, and reduced labial tone. Hyolaryngeal elevation/excursion appeared sluggish and diminished to palpation. Weak, gurgly cough was also noted. Pt coughed and expectorated mucus with cleared vocal quality prior to PO trials. Administered PO trials of thin liquids via tsp, cup, and straw, nectar thick liquids via straw, pureed solids, and soft solids. Pt with moderate anterior spillage of liquids via cup, strong preference for straw usage with subsequent elimination in anterior loss of material. Oral phase was further characterized by slowed, laborious, and incomplete mastication of soft solids. Pt expectorated 100% of soft solid trials. Expectorated material was scattered with incomplete bolus formation. Pt exhibited oral holding pattern with liquid trials, requiring consistent verbal cues for pharyngeal swallow initiation. Pharyngeally, the pt demonstrated an aggressive cough response or vocal changes during 100% of thin liquid attempts. Cough and vocal changes were successfully eliminated with nectar thick liquids. Pureed solids were also successfully cleared from oral cavity with no overt or subtle s/sx of aspiration. Unable to directly observe pt w/ medication administration. However, suspect that decreased coordination of oral musculature paired w/ compromised respiratory status and overall lability may result in difficulty managing whole medications. RN reports non-oral administration at this time. ST ASSESSMENT SUMMARY MIKE: Level 3: Moderate Dysphagia. 1:1 supervision recommended. Two diet consistencies restricted. See compensatory swallow strategies below. Aspiration Risk: Moderately increased. Suspected aspiration of thin liquids. Pt is also at increased risk for aspiration of solids d/t oral dysphagia. Respiratory status is compromised. Speech Therapy Need ST will continue monitor diet tolerance, provide diet upgrade recommendations, and instruct patient/caregiver re: safe swallow strategies to minimize risk for aspiration. RECOMMENDATIONS 1. Diet: dysphagia I (puree), nectar thick liquids. 2. Medications: non-oral 3. Compensatory Techniques: 1:1 supervision during PO intake, assistance with feeding, perform regular oral hygiene, ensure upright positioning during PO intake, small bites/sips, one bite/sip at a time, liquids via straw, verbally cue to swallow. 4. Repeat MBSS pending improvements in DAYSI PLAN OF CARE Goals 1. Patient and caregivers will receive education regarding safe swallow strategies/precautions, diet modification recommendations, and compensatory techniques, and will provide verbal/visual demonstration of comprehension during 90% of attempts with min cues. 2. Patient will safely tolerate least restrictive diet textures at PLOF (regular solids, thin liquids) during 90% of attempts with appropriate support via trained caregivers. Rehabilitation Prognosis: Good. Strong family support. Thank you for this referral. Carolyn Lebron M.S., CCC-WIRE COATING MACHINE OPERATOR Speech Therapist [*] ANEL
[2018-01-10] MEDS: cefTRIAXone 2 GM VIAL IVP SCH (14:16)
[2018-01-10] MEDS: ACETAMINOPHEN(*)1000 MG/100 ML 100 ML IVPB PRN ×2 (14:44→23:04)
--- NOTE | 2018-01-10 15:16 | RADIOLOGY IMAGING REPORT ---
FACILITY: [facility] PATIENT NAME: Kaitlynn Echeverria : 1945 MR: [id number] V: [id number] EXAM DATE: ORDERING PHYSICIAN: STEPHANIE JOE TECHNOLOGIST: Location: [facility] Patient: Kaitlynn Echeverria : 1945 Visit/Account:[id number] Date of Sevice: 01/10/2018 Exam type: CHEST SINGLE AP History: hypoxia, cp Comparison: January 09, 2018. Findings: There is airspace consolidation now identified over the left lung base with silhouetting of left christine diaphragm. Mild chronic peribronchial thickening noted bilaterally. Very prominent central pulmonar y arteries again seen. There is cardiomegaly unchanged IMPRESSION: 1. New airspace consolidation in the left lung base consistent with infiltrate and/or atelectasis Report Dictated By: Verona Hagen MD at 01/10/2018 3:10 PM Report E-Signed By: Verona Hagen MD at 01/10/2018 3:11 PM [email or web address]
[2018-01-10] MEDS ORDERED: IOPAMIDOL 76% 75 ML INFUS BTL 75 ML ONE (18:02)
[2018-01-10] MEDS ORDERED: NS(*) 0.9% 50 ML BAG 50 ML ONE (18:03)
--- NOTE | 2018-01-10 20:22 | RADIOLOGY IMAGING REPORT ---
FACILITY: [facility] PATIENT NAME: Kaitlynn Echeverria : 1945 MR: [id number] V: [id number] EXAM DATE: ORDERING PHYSICIAN: STEPHANIE JOE TECHNOLOGIST: Location: [facility] [place] Patient: Kaitlynn Echeverria : 1945 Visit/Account:[id number] Date of Sevice: 01/10/2018 EXAMINATION: CT CHEST PULMONARY ANGIOGRAM COMPARISON: Chest x-ray same day and earlier. HISTORY: Intermittent chest pain and hypoxia. PROCEDURE: Pulmonary arterial phase imaging of the chest with 75 mL intravenous Isovue 370. Reconstru ction of the source data set includes multiplanar 2D in the sagittal and coronal planes, and 3D recon structed coronal slab MIP series. One of the following dose optimization techniques was utilized in the performance of this exam: Autom ated exposure control; adjustment of the mA and/or kV according to the patient's size; or use of an i terative reconstruction technique. Specific details can be referenced in the facility's radiology C T exam operational policy. FINDINGS: Pulmonary vasculature: There is good contrast opacification of the pulmonary arterial system. 4.0 cm main pulmonary artery. No pulmonary artery filling defect. Cardiac and mediastinum: Cardiac chambers are mildly enlarged. No pericardial effusion. Minimal coron nas calcifications. No thoracic aortic aneurysm. Lymph nodes: Negative. Lungs and pleura: Bilateral small simple appearing pleural effusions. Bilateral lower lobe mild atele ctasis. No consolidation or nodule. No pneumothorax or edema. Airways: Negative. Upper abdomen: Cholecystectomy. Osseous structures: Thoracic spine multilevel mild to moderate degenerative disc disease. No acute ch anges. IMPRESSION: 1. No pulmonary embolism. 2. Dilated main pulmonary artery is suggestive of pulmonary artery hypertension. 3. Bilateral small pleural effusions. Report Dictated By: Tj Santos MD at 01/10/2018 8:09 PM Report E-Signed By: jT Santos MD at 01/10/2018 8:17 PM WSN:[id number]
--- NOTE | 2018-01-10 20:27 | Miscellaneous Provider Note ---
Miscellaneous Provider Note Note The patient has intermittently through the day reported some chest pain. She has been unable to given any severity, location, aggravating or alleviating factors. She also has had some intermittent desaturations, one seemed associated with drinking a milk shake. She was on 2 liters of O2 earlier today, but now on 5 liters. ECG has showed some T flattening/inversion inferiorly. Troponin was negative. CTA of chest didn't show PE or infiltrate. Will follow symptoms. STEPHANIE JOE MD Jan 10, 2018 20:27
[2018-01-11] MEDS: HYDROCORTISONE 100 MG/2 ML IVP SCH ×2 (00:56→08:44)
[2018-01-11] MEDS: INSULIN HUM LISPRO 100 UN/ML 3 ML VIAL SUBQ PRN ×5 (01:00→16:56)
[2018-01-11 03:07] VITALS: BP 130/66
[2018-01-11] MEDS: NS(*) 0.9% 1000 ML BAG 1,000 ML IV PRN ×2 (05:27→12:27)
[2018-01-11 05:58] LABS: PLATELET COUNT, AUTOMATED 161 K/uL (150-450)
[2018-01-11 07:26] VITALS: BP 136/81
[2018-01-11] MEDS: PANTOPRAZOLE SOD 40 MG IV VIAL IVP SCH (08:44)
[2018-01-11] MEDS: ENOXAPARIN 40 MG/0.4ML SYR SC SCH (08:45)
[2018-01-11] MEDS: KCL (*) 20 MEQ/100 ML PREMIX 100 ML IV SCH ×2 (09:21→12:38)
--- NOTE | 2018-01-11 09:53 | Hospitalist Progress Note ---
Subjective Progress Notes Subjective This patient was admitted for urinary infection and sepsis. She had no acute events overnight. Patient Complains of: Cardiovascular: No: Chest Pain Respiratory: No: Shortness of Breath Physical Exam Vital Signs Date Time Temp Pulse Resp B/P (MAP) Pulse Ox O2 Delivery O2 Flow Rate FiO2 01/11/18 07:26 98.6 78 20 136/81 (99) 95 Nasal Cannula 2.0 Intake and Output 01/11/18 06:58 Intake Total 990 ml Output Total 825 ml Balance 165 ml IV Total 990 ml Output Urine Total 825 ml # Bowel Movements 5 Cardiovascular: Regular Rate and Rhythm Respiratory: Clear to Auscultation Result Diagram: 01/11/18 0541 01/11/18 0541 Item Value Date Time Blood Culture - Final Resulted 01/08/18 1335 Blood Peripheral Draw Urine Culture - Preliminary Resulted 01/08/18 1327 Cath Urine Escherichia Coli Blood Culture - Final Complete 01/08/18 1325 Blood Peripheral Draw Monitor Interpretation: Normal Sinus Rhythm Assessment and Plan Problems: (1) UTI (urinary tract infection) Status: Acute Assessment & Plan: Her urine and blood cultures are positive for E. coli. She is on treatment with ceftriaxone, and she will require at least 10 days of IV treatment. (2) Septic shock Status: Resolved Assessment & Plan: She was hypotensive on admission, and was started on vasopressors in the emergency department. The vasopressors have been weaned off and her stress dose hydrocortisone has been discontinued. (3) Acute renal failure Status: Acute Assessment & Plan: Improving with treatment of sepsis. (4) Decubital ulcer Assessment & Plan: She does have a large non-stageable wound on the sacrum. A wound care consult has been ordered. (5) Type 2 diabetes mellitus Status: Chronic Assessment & Plan: We have placed her on sliding scale level #2. (6) CVA (cerebral vascular accident) Status: Chronic Assessment & Plan: CVA X 2 11/26 - nystagmus and dizziness, acute ischemic mid- brain stroke (7) Parkinsonian syndrome Status: Chronic Assessment & Plan: It appears that she was started on Sinemet in the last month. Currently, it is on hold secondary to risk of aspiration from decreased mental status. (8) Pain Status: Chronic Assessment & Plan: Chronically on Gabapentin for unclear reasons. Currently, it is on hold secondary to risk of aspiration from decreased mental status. Exam Sepsis Risk: No Definite Risk DARCIE HE DO Jan 11, 2018 09:53
[2018-01-11 12:39] VITALS: BP 126/62
[2018-01-11] MEDS: cefTRIAXone 2 GM VIAL IVP SCH (14:04)
[2018-01-11 15:44] VITALS: BP 100/39
[2018-01-11 18:43] VITALS: BP 122/71
[2018-01-11 23:30] VITALS: BP 127/62
[2018-01-12] VITALS (7 sets, daily range): BP systolic 100–125; BP diastolic 57–98
[2018-01-12] MEDS: NS(*) 0.9% 1000 ML BAG 1,000 ML IV PRN ×2 (02:29→09:49)
[2018-01-12] MEDS: ACETAMINOPHEN(*)1000 MG/100 ML 100 ML IVPB PRN ×2 (03:21→16:38)
[2018-01-12] MEDS ORDERED: KCL (*) 20 MEQ/100 ML PREMIX 100 ML IV SCH (06:45)
[2018-01-12] MEDS ORDERED: MAGNESIUM SUL* 2 GM/50 ML IVPB 50 ML IVPB ONE (07:55)
[2018-01-12] MEDS: ENOXAPARIN 40 MG/0.4ML SYR SC SCH (08:55)
[2018-01-12] MEDS: PANTOPRAZOLE SOD 40 MG IV VIAL IVP SCH (08:55)
[2018-01-12] MEDS: INSULIN HUM LISPRO 100 UN/ML 3 ML VIAL SUBQ PRN ×2 (12:10→16:38)
--- NOTE | 2018-01-12 12:39 | Hospitalist Progress Note ---
Subjective Progress Notes Subjective She is awake and alert. She answers all questions slowly. Physical Exam Vital Signs Date Time Temp Pulse Resp B/P (MAP) Pulse Ox O2 Delivery O2 Flow Rate FiO2 01/12/18 11:45 98.5 65 18 120/98 (105) 95 Nasal Cannula 2.0 Intake and Output 01/12/18 06:58 Intake Total 2500 ml Output Total 1650 ml Balance 850 ml Intake Oral 320 ml IV Total 2180 ml Output Urine Total 1650 ml # Voids 1 # Bowel Movements 5 General Appearance: Alert, Awake Cardiovascular: Regular Rate and Rhythm Respiratory: Clear to Auscultation GI: Soft and Non-Tender Extremities: Warm, Perfused Integumentary: Other (areas of pressure over sacrococcygeal/buttocks) Result Diagram: 01/11/18 0541 01/12/18 0530 Monitor Interpretation: Normal Sinus Rhythm Assessment and Plan Problems: (1) UTI (urinary tract infection) Status: Acute Assessment & Plan: Clinically improved. Her urine and blood cultures are posi tive for E. coli. She is on treatment with IV ceftriaxone. (2) Septic shock Status: Resolved Assessment & Plan: Resolved. She was hypotensive on admission and was started on vasopressors in the emergency department. The vasopressors have been weaned off and her stress dose hydrocortisone has been discontinued. (3) Acute renal failure Status: Acute Assessment & Plan: Resolved. Creatinine is now 1.0. (4) Decubital ulcer Assessment & Plan: She does have a large non-stageable wound on the sacrum. Wound care team following. (5) Type 2 diabetes mellitus Status: Chronic Assessment & Plan: We have placed her on sliding scale level #2. 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 (7) Parkinsonian syndrome Status: Chronic Assessment & Plan: It appears that she was started on Sinemet in the last month. Currently, it is on hold. (8) Pain Status: Chronic Assessment & Plan: Chronically on Gabapentin for unclear reasons. Will resume. Exam Sepsis Risk: No Definite Risk NICOLASA MENJIVAR MD Jan 12, 2018 12:39
--- NOTE | 2018-01-12 13:05 | Medical Nutrition Therapy ---
Nutrition Anthropometrics Height (Inches): 68.00 Height (Calculated Centimeters: 172.911673 Weight (Pounds): 214 Weight (Calculated Kilograms): 97.069 BMI: 29.8 Miguel Nutrition Score: Probably Inadequate Miguel Nutrition Risk Score: 11 Dietary Referral Nutrition Risk Factors: Unplanned Loss >10lbs Nutrition Risk Comment: Physical Findings Physical Appearance: Overweight BMI 25-29 Skin Appearance Skin Appearance: Edema Edema Location Modifier: Both Edema Location: Lower Extremity Type of Edema: Degree of Edema: Gastrointestinal Symptoms GI Symtoms: Tube Present: Bowel Sounds: Recent Bowel Pattern: Stool Characteristics: Nutritional Diagnosis Nutritional Risk Acuity 2: Sepsis Nutritional Risk Acuity 3: ST I/II Pressure Ulcer Past Medical History: Hx CVA, T2DM, pneumonia, cholecystectomy, kidney stones, knee pain, gout, osteoarthritis. Nutritional Acuity: 2-Moderate Nutrition Diagnosis: Increased Nutrient Needs Nutrition Etiology: Physiological Causes Nutrition Problem/Etiology/Sym: Increased nutrient needs r/t physiological causes AEB Alb 2.7, total protein 5.7. Energy Requirement: 1730 ([place] adj for obesity * 1.3) Protein Requirement: 90 (1g/kg) Fluid Requirement: 2225 (25ml/kg) Diet Type: Diabetic Nutrition Intervention: Cont diet as ordered, Encourage intake Additional Diet Restrictions: Add protein powder to appropriate foods Diet Comment To [facility]: OFFER NUTR SUPPLEMENT Nutrition Monitoring & Eval Nutrition Goals: Eat 50-100% Meal Nutrition Follow-Up: Poor Intake Nutrition Monitoring: Reports of 0-15% intake RD Patient Assessment Time: [address] Assessment Type: RD Assessment Patient Nutrition Acuity: 2-Moderate Follow Up Date: Jan 14, 2018 Nutritional Comment: 01/09 Pt admitted for septic shock, hypotensive, and a decubital ulcer. Hx CVA, T2DM, pneumonia, cholecystectomy, kidney stones, knee pain, gout, osteoarthritis. Pt on Diabetic diet. BG elevated ranging from 180-205. Elevated WBC at 18, BUN of 36, Creatinine at 1.5. K+ was elevated at admission but down WNL. Low levels of RBC of 4.12, Hgb at 11.6, alb 2.7, total protein at 5.6. Will offer nutr supplement. Total Creatinine kinase very elevated at 359. Will follow labs and PO intake. TB 01/12/18 Pt continues on dysphagia 1 diet. WBC have improved from 18.8 to 11.3. Whole blood glucose of 168 is high, but pt is on insulin. Bilirubin of 1.6 is high and BUN of 31 is high, most likely due to kidney dysfuction. Intake of 0-15% is poor. Encourage intake, and monitor for improvements in intake. LESLI MORGAN Jan 12, 2018 13:05
[2018-01-12] MEDS: cefTRIAXone 2 GM VIAL IVP SCH (14:15)
[2018-01-12] MEDS: KCL/NS* 20 MEQ/1000 ML PREMIX 1,000 ML IV SCH (17:51)
--- NOTE | 2018-01-12 17:53 | RADIOLOGY IMAGING REPORT ---
FACILITY: PATIENT NAME: Kaitlynn Echeverria : 1945 MR: [id number] V: [id number] EXAM DATE: ORDERING PHYSICIAN: NICOLASA MENJIVAR TECHNOLOGIST: Location: [facility] Patient: Kaitlynn Echeverria : 1945 Visit/Account:[id number] Date of Sevice: 01/12/2018 CHEST SINGLE AP HISTORY: Increased oxygen requirement. COMPARISON: 01/10/2018. FINDINGS: Lines/tubes: None. Lungs/pleura: Improved aeration in the left lung base. Small pleural effusions. No pneumothorax. Heart: Negative. Mediastinum: Negative. Bony structures/body wall: Negative. IMPRESSION: Improved aeration in the left lung base. Small pleural effusions. No pneumothorax. Report Dictated By: Mario Morrell MD at 01/12/2018 5:47 PM Report E-Signed By: Mario Morrell MD at 01/12/2018 5:50 PM WSN:[id number]
[2018-01-12] MEDS ORDERED: KETOROLAC 15 MG/ML VIAL IVP ONE (17:55)
[2018-01-12] MEDS: PIPERACILLIN/TAZO*3.375GM VIAL 3.375 GM in NS(*) 0.9% 100 ML ADDVANT BAG 100 ML IVPB SCH ×2 (18:07→23:34)
[2018-01-12] MEDS ORDERED: GABAPENTIN 300 MG CAP PO SCH (21:00)
[2018-01-13 02:24] VITALS: BP 121/67
[2018-01-13] MEDS: ACETAMINOPHEN(*)1000 MG/100 ML 100 ML IVPB PRN ×2 (02:28→20:22)
[2018-01-13] MEDS: PIPERACILLIN/TAZO*3.375GM VIAL 3.375 GM in NS(*) 0.9% 100 ML ADDVANT BAG 100 ML IVPB SCH ×3 (05:23→17:27)
[2018-01-13] MEDS: KCL/NS* 20 MEQ/1000 ML PREMIX 1,000 ML IV SCH ×2 (06:15→22:20)
[2018-01-13] MEDS ORDERED: traMADol 50 MG TAB PO PRN (08:00)
[2018-01-13 08:14] LABS: PLATELET COUNT, AUTOMATED 171 K/uL (150-450)
[2018-01-13 08:36] VITALS: BP 134/70
[2018-01-13] MEDS: PANTOPRAZOLE SOD 40 MG IV VIAL IVP SCH (09:18)
[2018-01-13] MEDS: GABAPENTIN 300 MG CAP PO SCH ×2 (09:19→20:19)
[2018-01-13] MEDS: ENOXAPARIN 40 MG/0.4ML SYR SC SCH (09:20)
--- NOTE | 2018-01-13 10:41 | Hospitalist Progress Note ---
Subjective Progress Notes Subjective 72F admitted for sepsis, ADRIANNA overnight. O2 needs coming down slowly after suspected aspiration. Patient Complains of: Respiratory: No: Cough Gastrointestinal: No Nausea, No Vomiting Physical Exam Vital Signs Date Time Temp Pulse Resp B/P (MAP) Pulse Ox O2 Delivery O2 Flow Rate FiO2 01/13/18 10:21 94 Oxy Mask 3.0 01/13/18 08:36 98.7 61 16 134/70 (91) Intake and Output 01/13/18 06:58 Intake Total 1504 ml Output Total 880 ml Balance 624 ml Intake Oral 230 ml IV Total 1274 ml Output Urine Total 880 ml # Bowel Movements 3 General Appearance: No Acute Distress, Afebrile Neuro: No Gross deficits ENT: Normal Cardiovascular: Normal Rhythm & Peripheral Pulses Respiratory: No Respiratory Distress (rhonchi on expiration) GI: Soft and Non-Tender Extremities: Soft and Non Tender, Warm, Pulses, Perfused Integumentary: Other (sacral decub wound) Result Diagram: 01/13/18 0805 01/13/18 0631 Monitor Interpretation: Normal Sinus Rhythm Assessment and Plan Problems: (1) UTI (urinary tract infection) Status: Acute Assessment & Plan: Clinically improved. Her urine and blood cultures are positive for E. coli. She is on treatment with IV Zosyn. (2) Septic shock Status: Resolved Assessment & Plan: Resolved. She was hypotensive on admission and was started on vasopressors in the emergency department. The vasopressors have been weaned off and her stress dose hydrocortisone has been discontinued. (3) Acute renal failure Status: Acute Assessment & Plan: Resolved. (4) Decubital ulcer Assessment & Plan: She does have a large non-stageable wound on the sacrum. Wound care team following. (5) Type 2 diabetes mellitus Status: Chronic Assessment & Plan: We have placed her on sliding scale level #2. 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 (7) Parkinsonian syndrome Status: Chronic Assessment & Plan: It appears that she was started on Sinemet in the last month. Currently, it is on hold. (8) Pain Status: Chronic Assessment & Plan: Chronically on Gabapentin for unclear reasons. Exam Sepsis Risk: No Definite Risk BAPTISTE MONSTER HASSAN DO Jan 13, 2018 10:41
[2018-01-13 12:47] VITALS: BP 129/65
[2018-01-13 19:34] VITALS: BP 121/66
[2018-01-13] MEDS: INSULIN HUM LISPRO 100 UN/ML 3 ML VIAL SUBQ PRN (20:23)
[2018-01-13 23:02] VITALS: BP 125/65
[2018-01-14 03:37] VITALS: BP 129/67
[2018-01-14] MEDS: PIPERACILLIN/TAZO*3.375GM VIAL 3.375 GM in NS(*) 0.9% 100 ML ADDVANT BAG 100 ML IVPB SCH ×3 (05:44→11:26)
[2018-01-14] MEDS: GABAPENTIN 300 MG CAP PO SCH (08:46)
[2018-01-14] MEDS: ENOXAPARIN 40 MG/0.4ML SYR SC SCH (08:46)
[2018-01-14] MEDS: PANTOPRAZOLE SOD 40 MG IV VIAL IVP SCH (08:46)
[2018-01-14 09:15] VITALS: BP 123/63
[2018-01-14] MEDS ORDERED: CEPH500C24 PO (09:39)
--- NOTE | 2018-01-14 09:42 | Hospitalist Depart ---
Discharge Summary Reason for Hosp/Final Diag: (1) UTI (urinary tract infection) Status: Acute Hospital Course & Plan: Her urine and blood cultures were positive for E. coli. She was initially on treatment with ceftriaxone and then switched to Zosyn. She will complete a course of oral Keflex. (2) Septic shock Status: Resolved Hospital Course & Plan: She was hypotensive on admission and was started on vasopressors in the emergency department. The vasopressors have been weaned off and her stress dose hydrocortisone has been discontinued. (3) Acute renal failure Status: Acute Hospital Course & Plan: Resolved. (4) Decubital ulcer Hospital Course & Plan: She does have a large non-stageable wound on the sacrum. The wound care team has been following. (5) Type 2 diabetes mellitus Status: Chronic Hospital Course & Plan: She is on sliding scale level #2. (6) CVA (cerebral vascular accident) Status: Chronic Hospital Course & Plan: History of CVA x2 in November 2014 - acute ischemic mid- brain stroke. Departure Latest Vital Signs Vital Signs 01/14/18 09:15 Temp 98.4 Pulse 65 Resp 32 B/P (MAP) 123/63 (83) Pulse Ox 90 O2 Delivery Nasal Cannula O2 Flow Rate 3.0 Weight (Pounds): 214 Weight (Ounces): 3.0 Result Diagram: 01/13/1880401/14/18 0535 Condition: Improved Discharge: Assisted PT/OT Follow Up For: PT Evaluation and Treat Follow-Up Labs: Finger Sticks Discharge Instructions Home Meds Active Scripts Insulin Lispro 100 Un/Ml Vial (HUMALOG 100 U/ML VIAL) 100 Unit/1 Ml Vial, 2-10 UNIT SUBQ SS PRN for SLIDING SCALE INSULIN, #10 ML Prov:NERIDARCIE DO 01/14/18 Cephalexin Monohydrate (CEPHALEXIN) 500 Mg Cap, 500 MG PO Q6H, #12 CAP Prov:DARCIE HE DO 01/14/18 Reported Medications Polyethylene Glycol 3350 (MIRALAX) 17 Gm Powd.pack, 17 GM PO DAILY, PKT 01/08/18 Multivitamin With Minerals (MULTIPLE VITAMIN) 1 Each Tablet, 1 EACH PO DAILY, TAB 10/04/16 Sennosides (SENNA) 8.6 Mg Tablet, 17.2 MG PO m,w,f 10/04/16 Acetaminophen (TYLENOL) 325 Mg Tablet, 650 MG PO Q4H PRN for pain, TAB 10/04/16 Atorvastatin Calcium (ATORVASTATIN CALCIUM) 10 Mg Tablet, 1 TAB PO QHS, TAB 10/04/16 Gabapentin (GABAPENTIN) 300 Mg Capsule, 300 MG PO BID, CAPSULE 10/04/16 Omeprazole (OMEPRAZOLE) 20 Mg Capsule.dr, 1 CAP PO QDAY, CAP 10/04/16 Discontinued Reported Medications Gabapentin (GABAPENTIN) 300 Mg Capsule, 600 MG PO QHS, CAPSULE 01/09/18 [natural neuro sup] No Conflict Check, 1 TAB PO BID for tremors 01/08/18 Carbidopa/Levodopa (SINEMET 25-100 MG TABLET) 1 Each Tablet, 1 EACH PO TID 01/08/18 Diclofenac Sodium 1% Gel (VOLTAREN 1% GEL) 100 Gm Gel..gram., 2 GM TOP 01/08/18 Nystatin (NYSTOP) 60 Gm Powder, 60 GM TP BID 10/04/16 Metformin Hcl (METFORMIN HCL) 500 Mg Tablet, 1 TAB PO BID, TAB 01/15/17 Dimethicone/Zinc Oxide (CHARISMA PROTECT CREAM) 142 Gm Cream..g., 142 GM TP bid and prn charisma protect moisture barrier cream to buttock and norbert area BID and prn 10/04/16 Insulin NPH Hum/Reg Insulin Hm (Humulin 70-30 Vial) 100 Unit/Ml (70-30) Vial, 8 UNIT SUBQ with lunch 10/04/16 Melatonin (Melatin) 3 Mg Tablet, 1 TAB PO QHS 10/04/16 [natural ] 1 TAB No Conflict Check, PO BID Medication is called: Natural Neuro Support 10/04/16 Ondansetron (ZOFRAN ODT) 4 Mg Tab.rapdis, 4 MG PO Q12H PRN for NAUSEA, TAB.WILBUR 10/04/16 Discontinued Scripts Tramadol Hcl (TRAMADOL HCL) 50 Mg Tablet, 2 TAB PO BID, #120 TAB 5 Refills Prov:TITA RANKIN APRN EVP AND CHIEF OPERATING OFFICER-C 11/08/17 Cefdinir 300 Mg Cap (OMNICEF 300 MG CAP (OR EQUIV)) 300 Mg Cap, 300 MG PO BID, #10 CAP Prov:DARCIE HE DO 10/07/16 Diet: Diabetic Activity: As Tolerated Copies to: DENZEL MOTA MD ; Venous Thromboembolism Antithrombotics Is Pt On Any Antithrombotics?: No DARCIE HE DO Jan 14, 2018 09:42
[2018-01-14] MEDS ORDERED: INSU100V24 SUBQ (09:44)
[2018-01-14] MEDS: INSULIN HUM LISPRO 100 UN/ML 3 ML VIAL SUBQ PRN (11:40)
[2018-01-14] MEDS ORDERED: PCA LOCKBOX KEYS XX ONE ×3 (14:17→14:28)
== END 2018-01-14 13:50 | DRG 871 ==
LOC: ER 13:20 → ICU 14:51 → MED 01-10 09:55
PROVIDERS: ADMIT Family Medicine; ATTEND Family Medicine
PROC: 05JY3ZZ Inspection of Upper Vein, Percutaneous Approach (ICD-10-PCS; principal; 2018-01-08)
DX: A41.51 Sepsis due to Escherichia coli [E. coli] (principal); R65.21 Severe sepsis with septic shock; N17.9 Acute kidney failure, unspecified; N39.0 Urinary tract infection, site not specified; L89.151 Pressure ulcer of sacral region, stage 1; E11.9 Type 2 diabetes mellitus without complications; G20 Parkinson's disease; G89.29 Other chronic pain; Z86.73 Personal history of transient ischemic attack (TIA), and cerebral infarction without residual deficits; Z90.49 Acquired absence of other specified parts of digestive tract; Z88.7 Allergy status to serum and vaccine; Z79.84 Long term (current) use of oral hypoglycemic drugs; Z79.4 Long term (current) use of insulin; Z53.09 Procedure and treatment not carried out because of other contraindication
CPT/HCPCS: 36415; 36416; 71045; 71275; 81001; 82040; 82247; 82274; 82310; 82374; 82435; 82550; 82565; 82947; 82948; 83605; 83735; 84075; 84132; 84155; 84295; 84450; 84460; 84484; 84520; 85025; 85379; 85610; 85730; 87040; 87077; 87088; 87186; 87502; 93005; 94667; 94668; 96361; 96365; 96366; 96368; 96375; 99285; A4353; C1758; C9113; J0131; J0456; J0692; J0696; J1650; J1720; J1885; J2543; J3370; J3475; J3480; J3490; J7030; J7050; J7060; J7120; Q9967

== ENCOUNTER → 2018-01-08 | Outpatient (CLI) | payer MEDICARE, MEDICAID ==
[2016-10-05 08:12] VITALS: BMI 28.6
[~2018-01-08] MED LIST changes: +CARB-71 PO; +CEPH500C24 PO; +DICL100G39 TOP; +POLY17PO25 PO; +[UNRECOGNIZED DRUG - OTHER] PO
== END ==
LOC: AMB 12:32
PROVIDERS: ATTEND Nurse Practitioner
DX: R41.82 Altered mental status, unspecified (principal); R61 Generalized hyperhidrosis; I95.9 Hypotension, unspecified; R53.83 Other fatigue; Z74.01 Bed confinement status
CPT/HCPCS: A0425; A0427

== ENCOUNTER → 2018-01-25 | Outpatient (REF) | payer MEDICARE, MEDICAID ==
[2016-10-05 08:12] VITALS: BMI 28.6
[~2018-01-25] MED LIST changes: +CARB-71 PO; +CEPH500C24 PO; +DICL100G39 TOP; +POLY17PO25 PO; +[UNRECOGNIZED DRUG - OTHER] PO
== END ==
LOC: ZZLCC 07:45
PROVIDERS: ATTEND Nurse Practitioner Family
DX: M79.10 Myalgia, unspecified site (principal)
CPT/HCPCS: 82040; 82247; 82310; 82374; 82435; 82550; 82565; 82947; 84075; 84132; 84155; 84295; 84450; 84460; 84520; 86140

== ENCOUNTER 2018-02-01 14:39 | Inpatient (IN) | payer MEDICARE, MEDICAID ==
[2016-10-05 08:12] VITALS: Wt 90.7 kg
[~2018-02-01 14:39] MED LIST changes: -AMIN30LI PO; -ASPI81TA86 PO; -DOXY-252 PO; -SENN-203 PO
--- NOTE | 2018-02-01 14:45 | ER Report ---
History and Physical Time Seen By MD: 14:45 HPI/ROS CHIEF COMPLAINT: I had a stroke this morning HISTORY OF PRESENT ILLNESS: 72-year-old female patient presents to emergency room with complaint of having had a stroke this morning. Patient states that she had a stroke this morning. She would not answer when I asked her what made her think she had had a stroke. Patient states that she's been feeling very weak. She denies any laterality of her weakness. [facility] a [facility] a [facility]. They did call with complaint of a fever and wanted her to be evaluated for that. He states she's also been coughing secondary to eating. When they had checked her vital signs her heart rate was elevated and her oxygen levels were a little bit low on 2 L, 89%. REVIEW OF SYSTEMS: Respiratory: As noted above Cardiovascular: No chest pain, no palpitations. Gastrointestinal: No vomiting, no abdominal pain. Musculoskeletal: No back pain. Allergies: Coded Allergies: Influenza Virus Vaccines (Verified Adverse Reaction, Mild, "I GET EXTREMLY ILL", 02/01/18) Home Meds Active Scripts Tramadol Hcl (TRAMADOL HCL) 50 Mg Tablet, 2 TAB PO BID, #120 TAB 5 Refills Prov:TITA RANKIN APRN DRUM DYEING MACHINE OPERATOR-C 01/21/18 Insulin Lispro 100 Un/Ml Vial (HUMALOG 100 U/ML VIAL) 100 Unit/1 Ml Vial, 2-10 UNIT SUBQ SS PRN for SLIDING SCALE INSULIN, #10 ML Prov:DARCIE HE DO 01/14/18 Cephalexin Monohydrate (CEPHALEXIN) 500 Mg Cap, 500 MG PO Q6H, #12 CAP Prov:DARCIE HE DO 01/14/18 Reported Medications Polyethylene Glycol 3350 (MIRALAX) 17 Gm Powd.pack, 17 GM PO DAILY, PKT 01/08/18 Multivitamin With Minerals (MULTIPLE VITAMIN) 1 Each Tablet, 1 EACH PO DAILY, TAB 10/04/16 Sennosides (SENNA) 8.6 Mg Tablet, 17.2 MG PO m,w,f 10/04/16 Acetaminophen (TYLENOL) 325 Mg Tablet, 650 MG PO Q4H PRN for pain, TAB 10/04/16 Atorvastatin Calcium (ATORVASTATIN CALCIUM) 10 Mg Tablet, 1 TAB PO QHS, TAB 10/04/16 Gabapentin (GABAPENTIN) 300 Mg Capsule, 300 MG PO BID, CAPSULE 10/04/16 Omeprazole (OMEPRAZOLE) 20 Mg Capsule.dr, 1 CAP PO QDAY, CAP 10/04/16 Past Medical/Surgical History Patient has a past medical history of CVA, pneumonia, reflux, cholecystitis, frequent UTI, arthritis, type 2 diabetes, pressure sores, depression, anxiety. Patient has a surgical history of cholecystectomy, tubal ligation. Reviewed Nurses Notes: Yes Hx Smoking: No Smoking Status: Never Smoker Hx Substance Use Disorder: No Hx Alcohol Use: No Constitutional Vital Sign - Last 24 Hours 02/01/18 02/01/18 02/01/18 02/01/18 14:40 14:40 14:49 15:00 Temp 99.3 Pulse 95 98 Resp 18 B/P (MAP) 98/55 98/55 (69) 108/56 (73) Pulse Ox 77 93 O2 Delivery Room Air O2 Flow Rate 4.0 02/01/18 02/01/18 02/01/18 02/01/18 15:15 15:30 15:35 15:50 Pulse 93 87 86 Resp 13 9 9 10 B/P (MAP) 97/53 (68) Pulse Ox 93 84 94 94 02/01/18 02/01/18 02/01/18 02/01/18 16:00 16:05 16:10 16:30 Pulse 87 88 Resp 11 15 B/P (MAP) 92/46 (61) 97/53 (68) Pulse Ox 96 91 02/01/18 02/01/18 02/01/18 02/01/18 16:40 16:45 17:00 17:15 Pulse 84 86 87 83 Resp 13 12 15 10 B/P (MAP) 97/51 (66) Pulse Ox 84 95 95 95 02/01/18 17:30 Resp 12 B/P (MAP) 101/59 (73) Pulse Ox 90 Physical Exam General Appearance: The patient is alert, has no immediate need for airway protection and no current signs of toxicity. Eyes: Pupils equal and round no injection. Extraocular movements intact. Respiratory: Chest is non tender, lungs are clear to auscultation. Patient had a wet cough with deep inspiration. Cardiac: regular rate and rhythm. Gastrointestinal: Abdomen is soft and non tender, no masses, bowel sounds normal. Musculoskeletal: Neck: Neck is supple and non tender. Extremities have full range of motion and are non tender. Skin: No rashes or lesions. DIFFERENTIAL DIAGNOSIS: After history and physical exam differential diagnosis was considered for adult fever including but not limited to viral syndromes including influenza, urinary tract infection, pneumonia and sepsis. Medical Decision Making Data Points Result Diagram: 02/01/18 1517 02/01/18 1517 Laboratory Hematology Test 02/01/18 00:00 02/01/18 14:56 02/01/18 15:17 Urine Color Yellow Urine Clarity Slightly-cloudy Urine pH 5.0 pH (4.8-9.5) Urine Specific Lovejoy 1.015 Urine Protein Negative mg/dL (NEGATIVE) Urine Glucose (UA) Negative mg/dL (NEGATIVE) Urine Ketones Trace mg/dL (NEGATIVE) Urine Blood Small (NEGATIVE) Urine Nitrite Negative (NEGATIVE) Urine Bilirubin Negative (NEGATIVE) Urine Urobilinogen Negative mg/dL (0.2-1.9) Urine Leukocyte Esterase Moderate (NEGATIVE) Urine RBC 24 /HPF (0-2/HPF) Urine WBC 80 /HPF (0-5/HPF) Urine Squamous Epithelial Cells Many /LPF (NONE-FEW) Urine Bacteria Negative /HPF (NONE-FEW) Urine Mucus None /HPF (NONE-FEW) Urine Yeast (Budding) Few /HPF Influenza Virus Type A (PCR) Negative (NEGATIVE) Influenza Virus Type B (PCR) Negative (NEGATIVE) Red Blood Count 3.36 M/uL (4.17-5.56) Mean Corpuscular Volume 85.6 fL (80.0-96.0) Mean Corpuscular Hemoglobin 28.3 pg (26.0-33.0) Mean Corpuscular Hemoglobin Concent 33.1 g/dL (32.0-36.0) Red Cell Distribution Width 15.6 % (11.5-14.5) Mean Platelet Volume 7.0 fL (7.2-11.1) Neutrophils (%) (Auto) 85.1 % (39.4-72.5) Lymphocytes (%) (Auto) 7.4 % (17.6-49.6) Monocytes (%) (Auto) 7.1 % (4.1-12.4) Eosinophils (%) (Auto) 0.1 % (0.4-6.7) Basophils (%) (Auto) 0.3 % (0.3-1.4) Nucleated RBC Relative Count (auto) 0.0 /100WBC Neutrophils # (Auto) 9.1 K/uL (2.0-7.4) Lymphocytes # (Auto) 0.8 K/uL (1.3-3.6) Monocytes # (Auto) 0.8 K/uL (0.3-1.0) Eosinophils # (Auto) 0.0 K/uL (0.0-0.5) Basophils # (Auto) 0.0 K/uL (0.0-0.1) Nucleated RBC Absolute Count (auto) 0.00 K/uL Erythrocyte Sedimentation Rate 50 mm/HOUR (0-30) Sodium Level 135 mmol/L (137-145) Potassium Level 5.7 mmol/L (3.5-5.0) Chloride Level 96 mmol/L (98-107) Carbon Dioxide Level 33 mmol/L (22-31) Blood Urea Nitrogen 39 mg/dl (7-18) Creatinine 1.50 mg/dl (0.52-1.04) Glomerular Filtration Rate Calc 34.2 Random Glucose 159 mg/dl (75-110) Calcium Level 9.0 mg/dl (8.4-10.2) Total Bilirubin 0.5 mg/dl (0.2-1.3) Aspartate Amino Transf (AST/SGOT) 13 U/L (0-35) Alanine Aminotransferase (ALT/SGPT) 11 U/L (0-56) Alkaline Phosphatase 61 U/L (0-126) Troponin I < 0.012 ng/ml C-Reactive Protein 6.8 mg/dl (<1.0) Total Protein 6.1 g/dl (6.3-8.2) Albumin 2.9 g/dl (3.5-5.0) Chemistry Test 02/01/18 00:00 02/01/18 14:56 02/01/18 15:17 Urine Color Yellow Urine Clarity Slightly-cloudy Urine pH 5.0 pH (4.8-9.5) Urine Specific Lovejoy 1.015 Urine Protein Negative mg/dL (NEGATIVE) Urine Glucose (UA) Negative mg/dL (NEGATIVE) Urine Ketones Trace mg/dL (NEGATIVE) Urine Blood Small (NEGATIVE) Urine Nitrite Negative (NEGATIVE) Urine Bilirubin Negative (NEGATIVE) Urine Urobilinogen Negative mg/dL (0.2-1.9) Urine Leukocyte Esterase Moderate (NEGATIVE) Urine RBC 24 /HPF (0-2/HPF) Urine WBC 80 /HPF (0-5/HPF) Urine Squamous Epithelial Cells Many /LPF (NONE-FEW) Urine Bacteria Negative /HPF (NONE-FEW) Urine Mucus None /HPF (NONE-FEW) Urine Yeast (Budding) Few /HPF Influenza Virus Type A (PCR) Negative (NEGATIVE) Influenza Virus Type B (PCR) Negative (NEGATIVE) White Blood Count 10.6 k/uL (4.5-11.0) Red Blood Count 3.36 M/uL (4.17-5.56) Hemoglobin 9.5 g/dL (12.0-16.0) Hematocrit 28.8 % (34.0-47.0) Mean Corpuscular Volume 85.6 fL (80.0-96.0) Mean Corpuscular Hemoglobin 28.3 pg (26.0-33.0) Mean Corpuscular Hemoglobin Concent 33.1 g/dL (32.0-36.0) Red Cell Distribution Width 15.6 % (11.5-14.5) Platelet Count 126 K/uL (150-450) Mean Platelet Volume 7.0 fL (7.2-11.1) Neutrophils (%) (Auto) 85.1 % (39.4-72.5) Lymphocytes (%) (Auto) 7.4 % (17.6-49.6) Monocytes (%) (Auto) 7.1 % (4.1-12.4) Eosinophils (%) (Auto) 0.1 % (0.4-6.7) Basophils (%) (Auto) 0.3 % (0.3-1.4) Nucleated RBC Relative Count (auto) 0.0 /100WBC Neutrophils # (Auto) 9.1 K/uL (2.0-7.4) Lymphocytes # (Auto) 0.8 K/uL (1.3-3.6) Monocytes # (Auto) 0.8 K/uL (0.3-1.0) Eosinophils # (Auto) 0.0 K/uL (0.0-0.5) Basophils # (Auto) 0.0 K/uL (0.0-0.1) Nucleated RBC Absolute Count (auto) 0.00 K/uL Erythrocyte Sedimentation Rate 50 mm/HOUR (0-30) Glomerular Filtration Rate Calc 34.2 Calcium Level 9.0 mg/dl (8.4-10.2) Total Bilirubin 0.5 mg/dl (0.2-1.3) Aspartate Amino Transf (AST/SGOT) 13 U/L (0-35) Alanine Aminotransferase (ALT/SGPT) 11 U/L (0-56) Alkaline Phosphatase 61 U/L (0-126) Troponin I < 0.012 ng/ml C-Reactive Protein 6.8 mg/dl (<1.0) Total Protein 6.1 g/dl (6.3-8.2) Albumin 2.9 g/dl (3.5-5.0) Urinalysis Test 02/01/18 00:00 Urine Color Yellow Urine Clarity Slightly-cloudy Urine pH 5.0 pH (4.8-9.5) Urine Specific Lovejoy 1.015 Urine Protein Negative mg/dL (NEGATIVE) Urine Glucose (UA) Negative mg/dL (NEGATIVE) Urine Ketones Trace mg/dL (NEGATIVE) Urine Blood Small (NEGATIVE) Urine Nitrite Negative (NEGATIVE) Urine Bilirubin Negative (NEGATIVE) Urine Urobilinogen Negative mg/dL (0.2-1.9) Urine Leukocyte Esterase Moderate (NEGATIVE) Urine RBC 24 /HPF (0-2/HPF) Urine WBC 80 /HPF (0-5/HPF) Urine Squamous Epithelial Cells Many /LPF (NONE-FEW) Urine Bacteria Negative /HPF (NONE-FEW) Urine Mucus None /HPF (NONE-FEW) Urine Yeast (Budding) Few /HPF EKG/Imaging Imaging INDICATION: FEVER. DATE: 02/01/2018 5:15 PM. TECHNIQUE: CHEST SINGLE AP COMPARISON: Chest radiograph January 12, 2018 FINDINGS: Patchy left basilar and perihilar opacities are suspicious for pneumonia. The lungs are mildly hypoinflated exaggerating the size of the cardiac silhouette. IMPRESSION: Patchy left basilar and perihilar opacity suspicious for pneumonia. Report Dictated By: Concha Block MD at 02/01/2018 5:15 PM Report E-Signed By: Concha Block MD at 02/01/2018 5:[address] OF THE BRAIN WITHOUT CONTRAST HISTORY: Weakness PROCEDURE: 3.0 mm contiguous axial sections were performed through the brain. Sagittal and coronal reformats were submitted. COMPARISON: No comparisons would open in PACS. FINDINGS: BRAIN: Brain and intracranial structures: There is no mass lesion, hemorrhage or acute infarct. Orbits (included portions): Unremarkable Scalp: Normal. Skull: Normal. Paranasal sinuses and mastoid air cells (included portions): Normal. IMPRESSION: No evidence of acute intracranial abnormality by CT. One of the following dose optimization techniques was utilized in the performance of this exam: Automated exposure control; adjustment of the mA and/or kV according to the patient's size; or use of an iterative reconstruction technique. Specific details can be referenced in the facility's radiology CT exam operational policy. Report Dictated By: Concha Block MD at 02/01/2018 4:54 PM Report E-Signed By: Concha Block MD at 02/01/2018 5:02 PM ED Course/Re-evaluation ED Course Patient was admitted and examined, history and physical were obtained. Differential diagnoses were considered. On examination lungs are clear, however the patient does have a wet cough. Heart sounds were normal, abdomen was soft nontender. A CT scan of the head, CBC, CMP, urinalysis, chest x-ray were done. Patient had no acute findings on the CT scan of the brain. CBC showed a white count of 10.5 with a left shift. CMP was unremarkable, urinalysis did show mo derate leukocyte esterase with 80 white blood cells per high-power field. Patient was just treated for urinary tract infection and we will go ahead and culture the urine. Chest x-ray did show a multifocal pneumonia predominantly in the left lower lobe. I discussed the findings with the patient and felt she should be admitted. Patient verbalized understanding and agreement. I spoke with Dr. He, hospitalist, who agreed to accept the patient for admission with diagnosis of pneumonia. Decision to Disposition Date: Feb 01, 2018 Decision to Disposition Time: 18:08 Depart Departure Latest Vital Signs Vital Signs Date Time Temp Pulse Resp B/P (MAP) Pulse Ox O2 Delivery O2 Flow Rate FiO2 02/01/18 17:30 12 101/59 (73) 90 02/01/18 17:15 83 02/01/18 14:40 99.3 Room Air 02/01/18 14:40 4.0 Core Temperature (Celsius): 36.7 Impression: Primary Impression: Pneumonia Additional Impressions: Dehydration Acute renal failure Condition: Condition Unchanged Disposition: Admitted from ER Referrals: DENZEL MOTA MD (PCP) Problem Qualifiers Primary Impression: Pneumonia Pneumonia type: due to unspecified organism Laterality: left Lung location: lower lobe of lung Qualified Codes: J18.1 - Lobar pneumonia, unspecified organism Additional Impressions: Acute renal failure Acute renal failure type: unspecified Qualified Codes: N17.9 - Acute kidney failure, unspecified POOJA RUCKER Feb 01, 2018 14:45
[2018-02-01] MEDS ORDERED: NS(*) 0.9% 500 ML BAG 500 ML IV ONE (14:50)
--- NOTE | 2018-02-01 15:07 | EKG ---
FACILITY: [facility] PATIENT NAME: MAURA HORN : [id number] MR: [id number] V: [id number] EXAM DATE: ORDERING PHYSICIAN: POOJA RUCKER TECHNOLOGIST: Test Reason : cough Blood Pressure : / mmHG Vent. Rate : 094 BPM Atrial Rate : 094 BPM P-R Int : 138 ms QRS Dur : 084 ms QT Int : 324 ms P-R-T Axes : 045 012 041 degrees QTc Int : 405 ms Normal sinus rhythm Normal ECG When compared with ECG of 10-JAN-2018 09:24, No significant change was found Confirmed by DARCIE HE ([id number]) on 02/01/2018 9:07:09 PM Referred By: Confirmed By:DARCIE HE
[2018-02-01 15:37] LABS: PLATELET COUNT, AUTOMATED 126 K/uL (150-450)
--- NOTE | 2018-02-01 17:06 | RADIOLOGY IMAGING REPORT ---
FACILITY: [facility] [place] PATIENT NAME: Kaitlynn Echeverria : 1945 MR: [id number] V: [id number] EXAM DATE: ORDERING PHYSICIAN: POOJA RUCKER TECHNOLOGIST: Location: [facility] [place] Patient: Kaitlynn Echeverria : 1945 Visit/Account:[id number] Date of Sevice: 02/01/2018 CT OF THE BRAIN WITHOUT CONTRAST HISTORY: Weakness PROCEDURE: 3.0 mm contiguous axial sections were performed through the brain. Sagittal and coronal r eformats were submitted. COMPARISON: No comparisons would open in PACS. FINDINGS: BRAIN: Brain and intracranial structures: There is no mass lesion, hemorrhage or acute infarct. Orbits (included portions): Unremarkable Scalp: Normal. Skull: Normal. Paranasal sinuses and mastoid air cells (included portions): Normal. IMPRESSION: No evidence of acute intracranial abnormality by CT. One of the following dose optimization techniques was utilized in the performance of this exam: Autom ated exposure control; adjustment of the mA and/or kV according to the patient's size; or use of an i terative reconstruction technique. Specific details can be referenced in the facility's radiology C T exam operational policy. Report Dictated By: Concha Block MD at 02/01/2018 4:54 PM Report E-Signed By: Concha Block MD at 02/01/2018 5:02 PM [id number]
--- NOTE | 2018-02-01 17:20 | RADIOLOGY IMAGING REPORT ---
FACILITY: [facility] [place] PATIENT NAME: Kaitlynn Echeverria : 1945 MR: [id number] V: [id number] EXAM DATE: ORDERING PHYSICIAN: POOJA RUCKER TECHNOLOGIST: Location: [facility] [place] Patient: Kaitlynn Echeverria : 1945 Visit/Account:[id number] Date of Sevice: 02/01/2018 INDICATION: FEVER. DATE: 02/01/2018 5:15 PM. TECHNIQUE: CHEST SINGLE AP COMPARISON: Chest radiograph January 12, 2018 FINDINGS: Patchy left basilar and perihilar opacities are suspicious for pneumonia. The lungs are mil dly hypoinflated exaggerating the size of the cardiac silhouette. IMPRESSION: Patchy left basilar and perihilar opacity suspicious for pneumonia. Report Dictated By: Concha Block MD at 02/01/2018 5:15 PM Report E-Signed By: Concha Block MD at 02/01/2018 5:16 PM [id number]
[2018-02-01 18:00] VITALS: BP 93/44
[2018-02-01] MEDS ORDERED: INSULIN HUM LISPRO 100 UN/ML 3 ML VIAL SUBQ PRN (18:45)
--- NOTE | 2018-02-01 18:51 | History & Physical ---
History of Present Illness Chief Complaint Weakness History of Present Illness This patient was [facility] emergency room by the [facility] for reported weakness. She denies any fever, cough, or shortness of breath. History Problems: (1) Neurodegenerative disorder Status: Chronic (2) Cerebrovascular disease Status: Chronic (3) Parkinsonian syndrome Status: Chronic (4) Type 2 diabetes mellitus Status: Chronic Home Meds Active Scripts Tramadol Hcl (TRAMADOL HCL) 50 Mg Tablet, 2 TAB PO BID, #120 TAB 5 Refills Prov:TITA RANKIN APRN PYTHON PROGRAMMER-C 01/21/18 Insulin Lispro 100 Un/Ml Vial (HUMALOG 100 U/ML VIAL) 100 Unit/1 Ml Vial, 2-10 UNIT SUBQ SS PRN for SLIDING SCALE INSULIN, #10 ML Prov:DARCIE HE DO 01/14/18 Cephalexin Monohydrate (CEPHALEXIN) 500 Mg Cap, 500 MG PO Q6H, #12 CAP Prov:DARCIE HE DO 01/14/18 Reported Medications Polyethylene Glycol 3350 (MIRALAX) 17 Gm Powd.pack, 17 GM PO DAILY, PKT 01/08/18 Multivitamin With Minerals (MULTIPLE VITAMIN) 1 Each Tablet, 1 EACH PO DAILY, TAB 10/04/16 Sennosides (SENNA) 8.6 Mg Tablet, 17.2 MG PO m,w,f 10/04/16 Acetaminophen (TYLENOL) 325 Mg Tablet, 650 MG PO Q4H PRN for pain, TAB 10/04/16 Atorvastatin Calcium (ATORVASTATIN CALCIUM) 10 Mg Tablet, 1 TAB PO QHS, TAB 10/04/16 Gabapentin (GABAPENTIN) 300 Mg Capsule, 300 MG PO BID, CAPSULE 10/04/16 Omeprazole (OMEPRAZOLE) 20 Mg Capsule.dr, 1 CAP PO QDAY, CAP 10/04/16 Allergies: Coded Allergies: Influenza Virus Vaccines (Verified Adverse Reaction, Mild, "I GET EXTREMLY ILL", 02/01/18) Patient History: Patient reports no known family medical history. Hx Smoking: No Smoking Status: Never Smoker Caffeine Intake: Soda Hx Alcohol Use: No Hx Substance Use Disorder: No Review of Systems All Systems Reviewed/Normal: Yes, Except as Noted Neurological: Weakness Exam Vital Signs Vital Signs Date Time Temp Pulse Resp B/P (MAP) Pulse Ox O2 Delivery O2 Flow Rate FiO2 02/01/18 18:00 99.0 84 14 93/44 (60) 98 Nasal Cannula 4.0 Neuro: No Gross deficits Eyes: PERRLA Cardiovascular: Regular Rate and Rhythm Respiratory: Clear to Auscultation GI: Abd Soft and Non-Tender Extremities: No Edema Integumentary: No Cyanosis Medical Decision Making Data Points Result Diagram: 02/01/18 1517 02/01/18 1517 EKG / Imaging Imaging Chest x-ray reviewed. Assessment and Plan Problems: (1) Bacterial pneumonia Assessment & Plan: She was reportedly sent to the emergency room for weakness. She denies any shortness of breath or cough, but her chest x-ray does suggest a new infiltrate on the left. We have started her on empiric treatment with ceftriaxone and azithromycin, but these may be able to be discontinued if her cultures are negative. A repeat chest x-ray is also ordered for the morning. (2) Neurodegenerative disorder Status: Chronic Assessment & Plan: She is on chronic treatment with gabapentin. (3) Type 2 diabetes mellitus Status: Chronic Assessment & Plan: She is on chronic treatment with sliding scale level #2. Copies to: DENZEL MOTA MD ; Venous Thromboembolism Antithrombotics Is Pt On Any Antithrombotics?: No Exam Sepsis Risk: No Definite Risk DARCIE HE DO Feb 01, 2018 18:51
[2018-02-01] MEDS: NS(*) 0.9% 1000 ML BAG 1,000 ML IV PRN (19:51)
[2018-02-01] MEDS ORDERED: cefTRIAXone 2 GM VIAL IVP SCH (20:00)
[2018-02-01 20:11] VITALS: BP 113/63
[2018-02-01] MEDS ORDERED: AZITHROMYCIN(*) 500 MG 500 MG in NS(*) 0.9% 250 ML BAG 250 ML IVPB SCH (21:00)
[2018-02-01] MEDS ORDERED: METF-450 PO (21:03)
[2018-02-01] MEDS ORDERED: AMIN30LI PO (21:03)
[2018-02-01] MEDS ORDERED: ASPI81TA86 PO (21:03)
[2018-02-01] MEDS ORDERED: CARB-71 PO (21:03)
[2018-02-01] MEDS ORDERED: SENN-203 PO (21:03)
[2018-02-01] MEDS: GABAPENTIN 300 MG CAP PO SCH (21:21)
[2018-02-02 02:26] VITALS: BP 128/70
[2018-02-02 06:37] LABS: PLATELET COUNT, AUTOMATED 107 K/uL (150-450)
--- NOTE | 2018-02-02 07:00 | RADIOLOGY IMAGING REPORT ---
FACILITY: [facility] PATIENT NAME: Kaitlynn Echeverria : 1945 MR: [id number] V: [id number] EXAM DATE: ORDERING PHYSICIAN: DARCIE HE TECHNOLOGIST: Location: [facility] [place] Patient: Kaitlynn Echeverria : 1945 Visit/Account:[id number] Date of Sevice: 02/02/2018 AP CHEST 02/02/2018 6:00 AM. INDICATION: pneumonia COMPARISON: Yesterday. FINDINGS: Lungs are well-expanded. Increased hazy left perihilar opacification. Patchy left base opacificatio n is similar to prior. No pleural effusion or pneumothorax. Heart size is normal. IMPRESSION: Increased perihilar opacification on the left suspicious for worsening infection. Report Dictated By: Robin Arellano MD at 02/02/2018 6:54 AM Report E-Signed By: Robin Arellano MD at 02/02/2018 6:55 AM WSN:[id number]
[2018-02-02 08:48] VITALS: BP 104/57
[2018-02-02] MEDS: GABAPENTIN 300 MG CAP PO SCH ×2 (08:58→20:20)
--- NOTE | 2018-02-02 10:07 | Medical Nutrition Therapy ---
Nutrition Anthropometrics Weight (Pounds): 200 Weight (Calculated Kilograms): 90.804 Miguel Nutrition Score: Adequate Miguel Nutrition Risk Score: 12 Dietary Referral Nutrition Risk Factors: Unplanned Loss >10lbs Nutrition Risk Comment: Physical Findings Physical Appearance: Obese BMI 30-39 Skin Appearance Skin Appearance: Edema Edema Location Modifier: Both Edema Location: Lower Extremity Type of Edema: Degree of Edema: 1+ Gastrointestinal Symptoms GI Symtoms: Tube Present: Bowel Sounds: Recent Bowel Pattern: Stool Characteristics: Nutritional Diagnosis Nutritional Risk Acuity 2: Unintended Wt Loss >5%/mo, Dysphagia Past Medical History: Hx CVA, T2DM, pneumonia, cholecystectomy, kidney stones, knee pain, gout, osteoarthriti, neurodegenerative disorder, cerebrovascular disease, Parkinsonian syndrom Nutritional Acuity: 2-Moderate Nutrition Diagnosis: Swallowing Difficulties Nutrition Etiology: Mechanical/Motor Issues Nutrition Problem/Etiology/Sym: Swallowing difficulties as related to mechanical/motor issues as evidenced by 7% wt loss in 1 month, Parkinsonian syndrome dx, and reported 80# wt loss in notes from previous admission. Energy Requirement: 2970 (25*90*1.1 (TEF)*1.2 activity factor) Adjusted Energy Requirement Re: 2470 (-500 kcal/day for 1# wt loss per week) Protein Requirement: 72 (0.8 g/kg) Fluid Requirement: 2250 (25mL/kg) Nutrition Intervention: Cont diet as ordered, Encourage intake, Obtain Height and Weight Diet Comment To RSA: Dysphagia 1 diet, Dysphagia Pureed (IDD 4 Pureed) Nutrition Monitoring & Eval Nutrition Goals: Eat 50-100% Meal Nutritional Goals Comment: Improve intakes, monitor weight loss RD Patient Assessment Time: [address] Assessment Type: RD Assessment Patient Nutrition Acuity: 2-Moderate Follow Up Date: Feb 04, 2018 Nutritional Comment: Pt admitted for weakness. Dx with bacterial pnemonia. Hx of T2DM, neurodegenerative disorder, cerebrovascular disease, and Parkinsonian syndrome. Currently on dysphagia 1 diet or pureed diet (IDD 4 Pureed) with no reported intakes at this time. Monitor consistency of food. Pt on insulin for T2DM, gabapentin for Parkinsonian, antibiotics azithromycin and ceftriaxone,antiGERD med pantoprazole, and polyethylene glycol. Whole blood glucose has improved from 159 to 101 mg/dL Hct and Hgb are both low at 25.2, and 8.2, respectively. BUN of 37 and creatinine of 1.40 indicate possible kidney dysfunction. Na of 134 is low, while K of 5.6 and CO2 of 33 are high. Ht at 01/08/18 admission of 68 cm and currenlty wt of 90 kg indicateds BMI of 31. 01/08/18 admission wt of 97 kg and 90 kg weight as of 02/02 indicate a 7% wt loss in 1 month. Obtain new ht and wt to verify. Monitor for improvement.-LESLI SAPP Feb 02, 2018 10:07
--- NOTE | 2018-02-02 11:10 | Antimicrobial Stewardship ---
Antimicrobial Time Out Antimicrobial Stewardship MD Service: Hospitalist Indications: CAP Antimicrobial Used Zithromax and Rocephin started 02/01. Started on oral Cefdinir 02/02. Start Date: Feb 01, 2018 Culture Results: No Comments Comments If final culture results remain negative, may dc antibiotics. ANA PAULA CHOPRA Feb 02, 2018 11:10
[2018-02-02] MEDS: ASPIRIN 81 MG ENTERIC COATED PO SCH (11:22)
[2018-02-02] MEDS: PANTOPRAZOLE SOD 20 MG TABEC PO SCH (11:22)
--- NOTE | 2018-02-02 14:34 | Hospitalist Progress Note ---
Subjective Progress Notes Subjective 72F admitted for PNA. ADRIANNA overnight, doing well. Need to discuss disposition with family. Patient Complains of: Respiratory: No: Cough, Congestion, Shortness of Breath, Wheezing Physical Exam Vital Signs Date Time Temp Pulse Resp B/P (MAP) Pulse Ox O2 Delivery O2 Flow Rate FiO2 02/02/18 08:58 Nasal Cannula 3.0 02/02/18 08:48 99.8 87 16 104/57 (73) 92 Intake and Output 02/02/18 07:00 Intake Total 650 ml Output Total 50 ml Balance 600 ml Intake Oral 150 ml IV Total 500 ml Output Urine Total 50 ml # Voids 2 General Appearance: Alert, Awake, No Acute Distress, Afebrile Neuro: No Gross deficits ENT: Normal Cardiovascular: Normal Rhythm & Peripheral Pulses Respiratory: No Respiratory Distress GI: Soft and Non-Tender Integumentary: Skin Intact without Lesion / Mass Result Diagram: 02/02/18 0549 02/02/18 0549 Assessment and Plan Problems: (1) Bacterial pneumonia Assessment & Plan: She was reportedly sent to the emergency room for weakness. She denies any shortness of breath or cough, but her chest x-ray does suggest a new infiltrate on the left. We have started her on empiric treatment with ceftriaxone and azithromycin, changed to PO azithromycin and cefdinir. Difficult to decipher if aspiration pneumonitis vs infection. Will continue antibiotics for at least 5 days. (2) Neurodegenerative disorder Status: Chronic Assessment & Plan: She is on chronic treatment with gabapentin. (3) Type 2 diabetes mellitus Status: Chronic Assessment & Plan: She is on chronic treatment with sliding scale level #2. Exam Sepsis Risk: No Definite Risk BAPTISTE MONSTER HASSAN DO Feb 02, 2018 14:34
[2018-02-02 15:46] VITALS: BP 112/63
[2018-02-02] MEDS: NS(*) 0.9% 1000 ML BAG 1,000 ML IV PRN (18:51)
[2018-02-02 19:45] VITALS: BP 134/65
[2018-02-02] MEDS: ACETAMINOPHEN 500 MG TAB PO PRN (20:08)
[2018-02-02] MEDS: CARBIDOPA/LEVODOPA 25/100 TAB PO SCH (20:09)
[2018-02-02] MEDS: AZITHROMYCIN 250 MG TAB PO SCH (20:19)
[2018-02-02] MEDS: CEFDINIR 300 MG CAP PO SCH (20:20)
[2018-02-03 02:28] VITALS: BP 103/57
[2018-02-03] MEDS: NS(*) 0.9% 1000 ML BAG 1,000 ML IV PRN ×2 (04:40→14:26)
[2018-02-03 06:28] LABS: PLATELET COUNT, AUTOMATED 116 K/uL (150-450)
[2018-02-03 07:44] VITALS: BP 114/59
[2018-02-03] MEDS: PANTOPRAZOLE SOD 20 MG TABEC PO SCH (08:19)
[2018-02-03] MEDS: ASPIRIN 81 MG ENTERIC COATED PO SCH (08:19)
[2018-02-03] MEDS: GABAPENTIN 300 MG CAP PO SCH ×2 (08:19→20:50)
[2018-02-03] MEDS: CEFDINIR 300 MG CAP PO SCH ×2 (08:20→20:50)
[2018-02-03] MEDS: CARBIDOPA/LEVODOPA 25/100 TAB PO SCH ×3 (08:20→20:49)
[2018-02-03] MEDS: POLYETHYLENE GLYCOL 17 GM PKT PO SCH (08:20)
[2018-02-03] MEDS: traMADol 50 MG TAB PO PRN (09:37)
[2018-02-03] MEDS ORDERED: ONDANSETRON 4 MG/2 ML VIAL IVP PRN (09:55)
--- NOTE | 2018-02-03 11:36 | Hospitalist Progress Note ---
Subjective Progress Notes Subjective She denies nausea, pain or trouble breathing. Staff reporting poor oral intake. Physical Exam Vital Signs Date Time Temp Pulse Resp B/P (MAP) Pulse Ox O2 Delivery O2 Flow Rate FiO2 02/03/18 07:50 96 Nasal Cannula 3.0 02/03/18 07:44 98.5 88 14 114/59 (77) Intake and Output 02/03/18 07:00 Intake Total 120 ml Balance 120 ml Intake Oral 120 ml # Voids 7 General Appearance: Alert, Awake, No Acute Distress Cardiovascular: Regular Rate and Rhythm Respiratory: Clear to Auscultation Extremities: No Edema Result Diagram: 02/03/1861402/03/18614 Assessment and Plan Problems: (1) Bacterial pneumonia Assessment & Plan: She was reportedly sent to the emergency room for weakness. She denies any shortness of breath or cough, but her chest x-ray does suggest a new infiltrate on the left. We have started her on empiric treatment with ceftriaxone and azithromycin, changed to PO azithromycin and cefdinir. Difficult to decipher if aspiration pneumonitis vs infection. Will continue antibiotics for at least 5 days. (2) Acute renal failure Status: Acute Assessment & Plan: Likely secondary to dehydration. Continue hydration and follow BMP. (3) Anemia Status: Chronic Assessment & Plan: It has been noted intermittently since September of 2016. No evidence of bleeding. Will check stool for occult blood and check iron studies, B12, Folate and reticulocyte. (4) Type 2 diabetes mellitus Status: Chronic Assessment & Plan: She is on chronic treatment with metformin. Check glucose AC and HS with sliding scale level #2. (5) Neurodegenerative disorder Status: Chronic Assessment & Plan: She is on chronic treatment with gabapentin. (6) CVA (cerebral vascular accident) Status: Chronic Exam Sepsis Risk: No Definite Risk Problem Qualifiers (1) Acute renal failure: Acute renal failure type: unspecified Qualified Codes: N17.9 - Acute kidney failure, unspecified STEPHANIE JOE MD Feb 03, 2018 11:35
[2018-02-03 16:29] VITALS: BP 97/63
[2018-02-03] MEDS: ACETAMINOPHEN 500 MG TAB PO PRN (18:18)
[2018-02-03 19:44] VITALS: BP 121/62
[2018-02-03] MEDS: AZITHROMYCIN 250 MG TAB PO SCH (20:49)
[2018-02-04 00:13] VITALS: BP 107/54
[2018-02-04] MEDS: NS(*) 0.9% 1000 ML BAG 1,000 ML IV PRN ×3 (00:17→20:23)
[2018-02-04 04:40] VITALS: BP 111/59
[2018-02-04 07:00] LABS: PLATELET COUNT, AUTOMATED 151 K/uL (150-450)
[2018-02-04] MEDS: GABAPENTIN 300 MG CAP PO SCH ×2 (10:06→20:23)
[2018-02-04] MEDS: PANTOPRAZOLE SOD 20 MG TABEC PO SCH (10:06)
[2018-02-04] MEDS: POLYETHYLENE GLYCOL 17 GM PKT PO SCH (10:06)
[2018-02-04] MEDS: traMADol 50 MG TAB PO PRN ×2 (10:06→20:23)
[2018-02-04] MEDS: ASPIRIN 81 MG ENTERIC COATED PO SCH (10:06)
[2018-02-04] MEDS: CEFDINIR 300 MG CAP PO SCH ×2 (10:06→20:23)
[2018-02-04] MEDS: CARBIDOPA/LEVODOPA 25/100 TAB PO SCH ×3 (10:07→20:24)
--- NOTE | 2018-02-04 11:06 | Medical Nutrition Therapy ---
Nutrition Anthropometrics Weight (Pounds): 200 Weight (Calculated Kilograms): 90.804 Miguel Nutrition Score: Adequate Miguel Nutrition Risk Score: 12 Dietary Referral Nutrition Risk Factors: Unplanned Loss >10lbs Nutrition Risk Comment: Physical Findings Physical Appearance: Obese BMI 30-39 Skin Appearance Skin Appearance: Edema Edema Location Modifier: Both Edema Location: Lower Extremity Type of Edema: Degree of Edema: 2+ Gastrointestinal Symptoms GI Symtoms: Tube Present: Bowel Sounds: Recent Bowel Pattern: Stool Characteristics: Nutritional Diagnosis Nutritional Risk Acuity 2: Unintended Wt Loss >5%/mo, Dysphagia Past Medical History: Hx CVA, T2DM, pneumonia, cholecystectomy, kidney stones, knee pain, gout, osteoarthriti, neurodegenerative disorder, cerebrovascular disease, Parkinsonian syndrom Nutritional Acuity: 2-Moderate Nutrition Diagnosis: Swallowing Difficulties Nutrition Etiology: Mechanical/Motor Issues Nutrition Problem/Etiology/Sym: Swallowing difficulties as related to mechanical/motor issues as evidenced by 7% wt loss in 1 month, Parkinsonian syndrome dx, and reported 80# wt loss in notes from previous admission. Energy Requirement: 2970 (25*90*1.1 (TEF)*1.2 activity factor) Adjusted Energy Requirement Re: 2470 (-500 kcal/day for 1# wt loss per week) Protein Requirement: 72 (0.8 g/kg) Fluid Requirement: 2250 (25mL/kg) Nutrition Intervention: Cont diet as ordered, Encourage intake, Obtain Height and Weight Additional Diet Restrictions: OFFER NUTR SUPPLMENT IF NO HIGH PROTEIN FOOD ORDERED OR CONSUMED Diet Comment To RSA: Dysphagia 1 diet, Dysphagia Pureed (IDD 4 Pureed) Nutrition Monitoring & Eval Nutrition Goals: Eat 75-100% Meal Nutrition Follow-Up: Poor Intake RD Patient Assessment Time: [address] Assessment Type: RD Re-Assessment Patient Nutrition Acuity: 2-Moderate Follow Up Date: Feb 07, 2018 Nutritional Comment: Pt admitted for weakness. Dx with bacterial pnemonia. Hx of T2DM, neurodegenerative disorder, cerebrovascular disease, and Parkinsonian syndrome. Currently on dysphagia 1 diet or pureed diet (IDD 4 Pureed) with no reported intakes at this time. Monitor consistency of food. Pt on insulin for T2DM, gabapentin for Parkinsonian, antibiotics azithromycin and ceftriaxone,antiGERD med pantoprazole, and polyethylene glycol. Whole blood glucose has improved from 159 to 101 mg/dL Hct and Hgb are both low at 25.2, and 8.2, respectively. BUN of 37 and creatinine of 1.40 indicate possible kidney dysfunction. Na of 134 is low, while K of 5.6 and CO2 of 33 are high. Ht at 01/08/18 admission of 68 cm and currenlty wt of 90 kg indicateds BMI of 31. 01/08/18 admission wt of 97 kg and 90 kg weight as of 02/02 indicate a 7% wt loss in 1 month. Obtain new ht and wt to verify. Monitor for improvement.-AKG 02/04 Pt cont on Dysphagia 1 (IDD 4)diet, SPL mili pending. Pt eating 5-50% of small to regular portions. BUN 39, nmzapab5m 1.5, Alb 2.2. Goal is to provide adequate but not excessive protein r/t dx ARF. Will offer nutr supplment if no high protein food ordered or consumed. Will cont to monitor and encourage intake. MG CALVO Feb 04, 2018 11:06
[2018-02-04 11:40] VITALS: BP 122/61
--- NOTE | 2018-02-04 13:14 | Hospitalist Progress Note ---
Subjective Progress Notes Subjective 72F admitted for PNA. ADRIANNA overnight doing better, awaiting placement. Patient Complains of: Respiratory: No: Cough Gastrointestinal: No Nausea, No Vomiting Physical Exam Vital Signs Date Time Temp Pulse Resp B/P (MAP) Pulse Ox O2 Delivery O2 Flow Rate FiO2 02/04/18 12:23 81 02/04/18 11:40 99.2 85 20 122/61 (81) Nasal Cannula 1.0 Intake and Output 02/04/18 07:00 Intake Total 2000 ml Balance 2000 ml Intake Oral 420 ml IV Total 1580 ml # Voids 6 General Appearance: Alert, Awake, No Acute Distress Neuro: No Gross deficits Cardiovascular: Other (irregluarly irregular) Respiratory: No Respiratory Distress GI: Soft and Non-Tender Integumentary: Skin Intact without Lesion / Mass Result Diagram: 02/04/1861402/04/18614 Assessment and Plan Problems: (1) Bacterial pneumonia Assessment & Plan: She was reportedly sent to the emergency room for weakness. She denies any shortness of breath or cough, but her chest x-ray does suggest a new infiltrate on the left. We have started her on empiric treatment with ceftriaxone and azithromycin, changed to PO azithromycin and cefdinir. Difficult to decipher if aspiration pneumonitis vs infection. Will continue antibiotics for at least 5 days. (2) Acute renal failure Status: Acute Assessment & Plan: Likely secondary to dehydration. No improvement in creatinine, renal US, kappa/lambda LC and SPEP pending. (3) Anemia Status: Chronic Assessment & Plan: It has been noted intermittently since September of 2016. No evidence of bleeding. Appears iron deficient, SPEP and kappa/lambda LC pending. (4) Type 2 diabetes mellitus Status: Chronic Assessment & Plan: She is on chronic treatment with metformin. Check glucose AC and HS with sliding scale level #2. (5) Neurodegenerative disorder Status: Chronic Assessment & Plan: She is on chronic treatment with gabapentin. (6) CVA (cerebral vascular accident) Status: Chronic Exam Sepsis Risk: No Definite Risk Problem Qualifiers (1) Acute renal failure: Acute renal failure type: unspecified Qualified Codes: N17.9 - Acute kidney failure, unspecified MONSTER KAUR DO Feb 04, 2018 13:13
--- NOTE | 2018-02-04 14:07 | RADIOLOGY IMAGING REPORT ---
FACILITY: [facility] [place] PATIENT NAME: Kaitlynn Echeverria : 1945 MR: [id number] V: [id number] EXAM DATE: ORDERING PHYSICIAN: MONSTER HASSAN TECHNOLOGIST: Location: [facility] Patient: Kaitlynn Echeverria : 1945 Visit/Account:[id number] Date of Sevice: 02/04/2018 Renal ultrasound Indication: Acute kidney injury. Comparison: CT abdomen pelvis on 11/23/2014. Findings: Right kidney measures 11.9 x 5.1 x 6.1 cm in cc, AP, and transverse dimensions respectively. Left kidney measures 9.0 x 5.9 x 3.9 cm in cc, AP, and transverse dimensions respectively. There is normal echogenicity of the bilateral kidneys. The right kidney does show mild hydronephrosis. The mid aspect of the collecting system does show a 1 .1 cm calcification. No other calcifications. No solid renal nodules. Left kidney shows no stones or hydronephrosis. No discrete renal lesions seen on the left side. Blood flow appears symmetric to both kidneys. The resistive index of the right kidney 0.60 left kidney 0.72. Bilateral ureteral jets were seen. Urinary bladder imaging was negative and there is mild post-void residual of 68 mL. Visualized abdominal aorta and IVC are unremarkable. IMPRESSION: 1. Mild right hydronephrosis. A discrete cause is not identified. There is a 1.1 cm stone in the mid collecting system of the right kidney. 2. Normal left kidney. 3. Mild post void residual in the urinary bladder of 68 mL. Report Dictated By: Donovan Cunningham at 02/04/2018 1:58 PM Report E-Signed By: Donovan Cunningham at 02/04/2018 2:04 PM WSN:[id number]
--- NOTE | 2018-02-04 15:24 | SWALLOW EVALUATION ---
Speech Therapy Clinical Swallow Evaluation Kaitlynn Echeverria, 72yrs 1945 Patient gave verbal consent for ST to speak to her daughter in law, Kristine, over the phone. In patient rm, with patient present, ST spoke to Kristine on the phone. Kristine reported serious concerns with the patient's care at [facility]. The family is considering alternate placement. The patient's son is on his way to town and is expected to be here Sunday. Kristine would like the patient to remain at [facility] until that time to allow the family to make discharge plans. Kristine, reports concerns with decrease in patient's quality of life d/t restrictive diet recommendations (dysphagia 1, nectar liquids). Family reports patient is refusing food at [facility]. Possible dehydration is noted in physician notes this visit which could be related to thickened liquid restrictions. The patient had an MBS in 2015. A clinical dysphagia evaluation was completed December, with the following results/recommendations: Summary from Clinical Dysphagia Eval 12/2017 Aspiration Risk: Moderately increased. Suspected aspiration of thin liquids. Pt is also at increased risk for aspiration of solids d/t oral dysphagia. Respiratory status is compromised. Recommendations: 1. Diet: dysphagia I (puree), nectar thick liquids. 2. Medications: non-oral 3. Compensatory Techniques: 1:1 supervision during PO intake, assistance with feeding, perform regular oral hygiene, ensure upright positioning during PO intake, small bites/sips, one bite/sip at a time, liquids via straw, verbally cue to swallow. 4. Repeat MBSS pending improvements in DAYSI An MBS is recommended to reassess the patient's swallow function and inform for possible diet upgrade recommendations. Thank you for referring this patient Beatriz Monterroso MS, CCC-COLLISION ESTIMATOR To contact the COLLISION ESTIMATOR please call #[phone] QDEE
[2018-02-04 16:04] VITALS: BP 113/66
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
[2018-02-04 18:59] VITALS: BP 133/59
[2018-02-04] MEDS: AZITHROMYCIN 250 MG TAB PO SCH (20:24)
[2018-02-05] MEDS: NS(*) 0.9% 1000 ML BAG 1,000 ML IV PRN ×2 (07:00→19:36)
[2018-02-05 07:36] VITALS: BP 114/58
--- NOTE | 2018-02-05 08:51 | RADIOLOGY IMAGING REPORT ---
FACILITY: [facility] PATIENT NAME: Kaitlynn Echeverria : 1945 MR: [id number] V: [id number] EXAM DATE: ORDERING PHYSICIAN: ROM HERNANDEZ TECHNOLOGIST: Location: [facility] [place] Patient: Kaitlynn Echeverria : 1945 Visit/Account:[id number] Date of Sevice: 02/05/2018 CHEST SINGLE AP Indication: Temp 101.3, prev respiratory problem Comparison: Chest x-ray 02/02/2018. Findings: Lungs: Hazy opacity left upper lobe has improved from the prior study, however mild residual opacity remains. Right lung is clear. Mediastinum/pulmonary vasculature: There is mild cardiomegaly. Pulmonary vasculature centrally is pro minent, unchanged. Bones/soft tissues: Normal. IMPRESSION: 1. Previously seen left upper lobe consolidation/airspace opacity has moderately improved from the pr ior study, consistent with pneumonia. 2. Mild cardiomegaly, prominent central vessels which can represent pulmonary vasculature congestion, stable. Report Dictated By: Get Maldonado at 02/05/2018 8:45 AM Report E-Signed By: Get Maldonado at 02/05/2018 8:47 AM WSN:[id number]
[2018-02-05 08:53] LABS: PLATELET COUNT, AUTOMATED 170 K/uL (150-450)
[2018-02-05] MEDS ORDERED: INFLUENZA VIRUS VAC 0.5ML SYR IM ONLY ONE (09:00)
[2018-02-05] MEDS ORDERED: VANCOMYCIN 1 GM ADDVIAL 1 GM in NS(*) 0.9% 250 ML ADDVAN BAG 250 ML IVPB ONE (09:00)
[2018-02-05] MEDS: traMADol 50 MG TAB PO PRN ×2 (09:47→21:07)
[2018-02-05] MEDS: POLYETHYLENE GLYCOL 17 GM PKT PO SCH (09:47)
[2018-02-05] MEDS: ASPIRIN 81 MG ENTERIC COATED PO SCH (09:47)
[2018-02-05] MEDS: PANTOPRAZOLE SOD 20 MG TABEC PO SCH (09:48)
[2018-02-05] MEDS: CARBIDOPA/LEVODOPA 25/100 TAB PO SCH ×3 (09:48→21:07)
[2018-02-05] MEDS: DOCUSATE SODIUM 100 MG CAP PO SCH ×2 (09:48→21:07)
[2018-02-05] MEDS: GABAPENTIN 300 MG CAP PO SCH ×2 (09:48→21:07)
--- NOTE | 2018-02-05 09:51 | Hospitalist Progress Note ---
Subjective Progress Notes Subjective Doing poorly with virtually no activity, poor respiratory effort, poor appetite. Noted to have temp of 101.3 F last evening with 99.1 F this AM. Physical Exam Vital Signs Date Time Temp Pulse Resp B/P (MAP) Pulse Ox O2 Delivery O2 Flow Rate FiO2 02/05/18 08:45 30.0 02/05/18 07:36 99.1 76 16 114/58 (76) 94 Nasal Cannula 2.0 Intake and Output 02/05/18 07:00 Intake Total 1789 ml Balance 1789 ml Intake Oral 420 ml IV Total 1369 ml # Voids 7 General Appearance: Awake, No Acute Distress, Other (Somnilent with slow verbal responses to questions.) Cardiovascular: Regular Rate and Rhythm, Other (S1S2 are very soft.) Respiratory: Other (Poor expansion with bilateral exp wheezing. Scattered ronchi both bases.) GI: Soft and Non-Tender Extremities: Edema Psych: Other (Drowsy and slowly responsive.l ) Result Diagram: 02/05/18 0802/05/18 0821 Item Value Date Time Arterial Blood pH 7.40 02/05/18 0841 Arterial Blood Partial Pressure CO2 45 mmHg H 02/05/18 0841 Arterial Blood Partial Pressure O2 58 mmHg L 02/05/18 0841 Arterial Blood Oxygen Saturation 89 % L 02/05/18 0841 Arterial Blood HCO3 28 mmol/L H 02/05/18 0841 Arterial Blood Base Excess 3.0 mmol/L 02/05/18 0841 Viral Test Acceptable 02/05/18 0841 Oxygen Liters/Minute 30% 02/05/18 0841 Assessment and Plan Problems: (1) UTI (urinary tract infection) Status: Acute Assessment & Plan: Cultures are growing both proteus and enterococcus and this probably explains the temp of 101.3 last evening. She is currently on azithro and omnicef for pulmonary infection. These will be stopped and will use ceftriaxone for the proteus and vancomycin for the enterococcus since there are not any antibiotics which will cover both. New set of blood cultures done. Will place cannon since she is incontinent and we have no idea of output. (2) Bacterial pneumonia Assessment & Plan: She was reportedly sent to the emergency room for weakness. Her chest x-ray does suggest a new infiltrate on the left. On empiric treatment with ceftriaxone and azithromycin, changed to PO azithromycin and cefdinir. Difficult to decipher if aspiration pneumonitis vs infection. Due to increasing respiratory signs and symptoms, ABG's were done and show mild CO2 retention (44) and low O2 of 58. Will try BiPAP to see if we can improve upon the resp status and clearance of secretions. Chest X-ray shows no new issues with infiltrates however she take a very shallow breath. (3) Acute renal failure Status: Acute Assessment & Plan: Likely secondary to dehydration. Renal US, kappa/lambda LC and SPEP pending. Creat is down to 1.3 this AM. (4) Anemia Status: Chronic Assessment & Plan: It has been noted intermittently since September of 2016. No evidence of bleeding. Appears iron deficient, SPEP and kappa/lambda LC pending. (5) Type 2 diabetes mellitus Status: Chronic Assessment & Plan: She is on chronic treatment with metformin. Check glucose AC and HS with sliding scale level #2. Glucose levels are well controlled. (6) Neurodegenerative disorder Status: Chronic Assessment & Plan: She is on chronic treatment with gabapentin. (7) CVA (cerebral vascular accident) Status: Chronic Time Spent on Plan of Care: > 30 min Exam Sepsis Risk: No Definite Risk Problem Qualifiers (1) Acute renal failure: Acute renal failure type: unspecified Qualified Codes: N17.9 - Acute kidney failure, unspecified ROM HERNANDEZ MD FACP Feb 05, 2018 09:51
[2018-02-05] MEDS: cefTRIAXone(*) 1 GM VIAL 1 GM in NS(*) 0.9% 100 ML ADDVANT BAG 100 ML IVPB SCH ×2 (11:39→21:06)
[2018-02-05 12:45] VITALS: BP 114/65
[2018-02-05] MEDS ORDERED: BISACODYL 10 MG SUPP PR PRN (13:35)
[2018-02-05 16:46] VITALS: BP 103/59
[2018-02-05 19:18] VITALS: BP 119/71
[2018-02-06] MEDS: NS(*) 0.9% 1000 ML BAG 1,000 ML IV PRN ×2 (07:05→18:06)
[2018-02-06 07:53] VITALS: BP 106/63
[2018-02-06] MEDS: cefTRIAXone(*) 1 GM VIAL 1 GM in NS(*) 0.9% 100 ML ADDVANT BAG 100 ML IVPB SCH ×2 (08:35→20:37)
[2018-02-06] MEDS: PANTOPRAZOLE SOD 20 MG TABEC PO SCH (10:38)
[2018-02-06] MEDS: GABAPENTIN 300 MG CAP PO SCH ×2 (10:38→20:31)
[2018-02-06] MEDS: POLYETHYLENE GLYCOL 17 GM PKT PO SCH (10:39)
[2018-02-06] MEDS: ASPIRIN 81 MG ENTERIC COATED PO SCH (10:39)
[2018-02-06] MEDS: CARBIDOPA/LEVODOPA 25/100 TAB PO SCH ×3 (10:39→20:31)
[2018-02-06] MEDS: DOCUSATE SODIUM 100 MG CAP PO SCH ×2 (10:39→20:31)
--- NOTE | 2018-02-06 11:56 | NUR ---
Did not medicate patient for BSG of 153 d/t actively drinking supplement milkshake Addendum: 02/06/18 at 1157 by IRVIN PAYTON RN Amended: Links added.
--- NOTE | 2018-02-06 12:42 | Hospitalist Progress Note ---
Subjective Progress Notes Subjective 72F admitted for pneumonia. ADRIANNA overnight having periodic fever spikes. Suspect aspiration. Patient Complains of: Respiratory: No: Cough Gastrointestinal: No Nausea, No Vomiting Physical Exam Vital Signs Date Time Temp Pulse Resp B/P (MAP) Pulse Ox O2 Delivery O2 Flow Rate FiO2 02/06/18 07:56 Nasal Cannula 1.0 02/06/18 07:53 98.6 70 12 106/63 (77) 96 02/05/18 08:45 30.0 Intake and Output 02/06/18 07:00 Intake Total 2434 ml Output Total 700 ml Balance 1734 ml Intake Oral 390 ml IV Total 2044 ml Output Urine Total 700 ml # Voids 1 # Bowel Movements 1 General Appearance: Alert, Awake, No Acute Distress, Afebrile Neuro: No Gross deficits ENT: Normal Cardiovascular: Normal Rhythm & Peripheral Pulses (frequent PAC with compensatory pause) Respiratory: No Respiratory Distress Extremities: Soft and Non Tender, Warm, Pulses, Perfused, Edema (moderate to groion) Integumentary: Skin Intact without Lesion / Mass Result Diagram: 02/05/1882002/05/18820 Assessment and Plan Problems: (1) UTI (urinary tract infection) Status: Acute Assessment & Plan: Cultures are growing both proteus and enterococcus. She is currently on ceftriaxone for the proteus and vancomycin for the enterococcus since there are not any antibiotics which will cover both. New set of blood cultures NGTD. Jolley in place. (2) Bacterial pneumonia Assessment & Plan: She was reportedly sent to the emergency room for weakness. Her chest x-ray does suggest a infiltrate on the left. On empiric treatment with ceftriaxone and vancomycin. Difficult to decipher if aspiration pneumonitis vs infection. Due to increasing respiratory signs and symptoms, ABG's were done and show mild CO2 retention (44) and low O2 of 58. Chest X-ray shows no new issues. (3) Acute renal failure Status: Acute Assessment & Plan: Slow to recover. Renal US shows mild hydro on R side, normal L collecting system. [place]/lambda LC and SPEP pending. (4) Anemia Status: Chronic Assessment & Plan: It has been noted intermittently since September of 2016. No evidence of bleeding. Appears iron deficient, SPEP and kappa/lambda LC pending. (5) Type 2 diabetes mellitus Status: Chronic Assessment & Plan: She is on chronic treatment with metformin. Check glucose AC and HS with sliding scale level #2. Glucose levels are well controlled. (6) Neurodegenerative disorder Status: Chronic Assessment & Plan: She is on chronic treatment with gabapentin. (7) CVA (cerebral vascular accident) Status: Chronic Exam Sepsis Risk: No Definite Risk Problem Qualifiers (1) Acute renal failure: Acute renal failure type: unspecified Qualified Codes: N17.9 - Acute kidney failure, unspecified MONSTER KAUR DO Feb 06, 2018 12:41
[2018-02-06 13:16] VITALS: BP 111/69
[2018-02-06] MEDS: traMADol 50 MG TAB PO PRN (13:18)
--- NOTE | 2018-02-06 18:08 | NUR ---
A coworker fed pt while I admitted a patient so blood sugar was not taken prior to meal. Sign is out at door. Addendum: 02/06/18 at 1809 by IRVIN PAYTON RN Amended: Links added.
[2018-02-06 18:46] VITALS: BP 97/72
[2018-02-06] MEDS ORDERED: traMADol 50 MG TAB PO PRN (22:20)
[2018-02-07] MEDS: NS(*) 0.9% 1000 ML BAG 1,000 ML IV PRN (05:40)
--- NOTE | 2018-02-07 07:32 | NUR ---
Random glucose with morning labs of 100mg/dL. Addendum: 02/07/18 at 0733 by MANUEL BALDWIN RN Amended: Links added.
[2018-02-07 08:35] VITALS: BP 105/54
[2018-02-07] MEDS: DOCUSATE SODIUM 100 MG CAP PO SCH ×2 (09:00→09:17)
[2018-02-07] MEDS: POLYETHYLENE GLYCOL 17 GM PKT PO SCH ×3 (09:00→09:18)
[2018-02-07] MEDS: PANTOPRAZOLE SOD 20 MG TABEC PO SCH (09:17)
[2018-02-07] MEDS: GABAPENTIN 300 MG CAP PO SCH (09:17)
[2018-02-07] MEDS: ASPIRIN 81 MG ENTERIC COATED PO SCH (09:17)
[2018-02-07] MEDS: cefTRIAXone(*) 1 GM VIAL 1 GM in NS(*) 0.9% 100 ML ADDVANT BAG 100 ML IVPB SCH (09:17)
[2018-02-07] MEDS: CARBIDOPA/LEVODOPA 25/100 TAB PO SCH (09:17)
[2018-02-07] MEDS ORDERED: DOXYCYCLINE HYCL 100 MG TAB PO ONE (09:45)
[2018-02-07] MEDS ORDERED: DOXY-252 PO (10:39)
--- NOTE | 2018-02-07 11:12 | Hospitalist Depart ---
Discharge Summary Reason for Hosp/Final Diag: (1) UTI (urinary tract infection) Status: Acute Hospital Course & Plan: Cultures are growing both proteus and enterococcus. She was receiving ceftriaxone for the proteus and vancomycin for the enterococcus since there are not any antibiotics which will cover both. New set of blood cultures NGTD. She will get Doxycycline for the enterococcus infection. She has received appropriate treatment for proteus during admission. (2) Bacterial pneumonia Hospital Course & Plan: She was reportedly sent to the emergency room for weakness. Her chest x-ray does suggest a infiltrate on the left. On empiric treatment with ceftriaxone and vancomycin. Difficult to decipher if aspiration pneumonitis vs infection. Due to increasing respiratory signs and symptoms, ABG's were done and show mild CO2 retention (44) and low O2 of 58. Chest X-ray shows no new issues. (3) Acute renal failure Status: Acute Hospital Course & Plan: Slow to recover. Renal US shows mild hydro on R side, normal L collecting system. [place]/lambda LC and SPEP performed. (4) Anemia Status: Chronic Hospital Course & Plan: It has been noted intermittently since September of 2016. No evidence of bleeding. Appears iron deficient. (5) Type 2 diabetes mellitus Status: Chronic Hospital Course & Plan: She is on chronic treatment with metformin. Continue usual regimen. Glucose levels are well controlled. (6) Neurodegenerative disorder Status: Chronic Hospital Course & Plan: She is on chronic treatment with gabapentin. (7) CVA (cerebral vascular accident) Status: Chronic Departure Latest Vital Signs Vital Signs 02/06/18 02/07/18 21:07 08:35 Temp 97.9 Pulse 67 Resp 24 B/P (MAP) 105/54 (71) Pulse Ox 96 O2 Delivery Bi-PAP O2 Flow Rate 1.0 FiO2 32.0 Weight (Pounds): 200 Weight (Ounces): 3.0 Result Diagram: 02/05/18 0821 02/07/18 0520 Condition: Improved Discharge: Prison PT/OT Follow Up For: PT For Strengthening, OT For ADL's, PT Evaluation and T reat, ST Evaluation and Treat, OT Evaluation and Treat Discharge Instructions Home Meds Active Scripts Doxycycline Monohydrate (DOXYCYCLINE MONOHYDRATE) 100 Mg Capsule, 100 MG PO BID for 3 Days, #6 CAPSULE Prov:RASHEEDA DOLAN POWER BUILDER DEVELOPER 02/07/18 Tramadol Hcl (TRAMADOL HCL) 50 Mg Tablet, 2 TAB PO BID, #120 TAB 5 Refills Prov:MASSIELTITA LIGIA POWER BUILDER DEVELOPER-C 01/21/18 Reported Medications Carbidopa/Levodopa (SINEMET 25-100 MG TABLET) 1 Each Tablet, 1 EACH PO TID 02/01/18 Sennosides (SENNOSIDES) 8.6 Mg Tablet, 8.6 MG PO PT TAKES TWO TABLETS EVERY MON, SUN AND SUN PT TAKES ONE TABLET ALL OTHER DAYS 02/01/18 Amino Acids/Protein Hydrolys (PRO-STAT LIQUID) 30 Ml Liquid.pkt, 30 ML PO 02/01/18 Metformin Hcl (METFORMIN HCL) 500 Mg Tablet, 1 TAB PO QDAY, TAB 02/01/18 Aspirin (ASPIRIN EC) 81 Mg Tablet.dr, 81 MG PO QDAY, TAB 02/01/18 Polyethylene Glycol 3350 (MIRALAX) 17 Gm Powd.pack, 17 GM PO DAILY, PKT 01/08/18 Multivitamin With Minerals (MULTIPLE VITAMIN) 1 Each Tablet, 1 EACH PO DAILY, TAB 10/04/16 Acetaminophen (TYLENOL) 325 Mg Tablet, 650 MG PO Q4H PRN for pain, TAB 10/04/16 Gabapentin (GABAPENTIN) 300 Mg Capsule, 300 MG PO BID, CAPSULE 10/04/16 Omeprazole (OMEPRAZOLE) 20 Mg Capsule.dr, 1 CAP PO QDAY, CAP 10/04/16 Discontinued Reported Medications Sennosides (SENNA) 8.6 Mg Tablet, 17.2 MG PO m,w,f 10/04/16 Atorvastatin Calcium (ATORVASTATIN CALCIUM) 10 Mg Tablet, 1 TAB PO QHS, TAB 10/04/16 Discontinued Scripts Insulin Lispro 100 Un/Ml Vial (HUMALOG 100 U/ML VIAL) 100 Unit/1 Ml Vial, 2-10 UNIT SUBQ SS PRN for SLIDING SCALE INSULIN, #10 ML Prov:DARCIE HE DO 01/14/18 Cephalexin Monohydrate (CEPHALEXIN) 500 Mg Cap, 500 MG PO Q6H, #12 CAP Prov:DARCIE HE DO 01/14/18 Diet: Diabetic Activity: As Tolerated Special Instructions: Take Doxycycline until gone. Follow up with Dr. Mota in 1 week. Copies to: DENZEL MOTA MD ; Venous Thromboembolism Antithrombotics Is Pt On Any Antithrombotics?: No Problem Qualifiers (1) Acute renal failure: Acute renal failure type: unspecified Qualified Codes: N17.9 - Acute kidney failure, unspecified RASHEEDA DOLAN POWER BUILDER DEVELOPER Feb 07, 2018 11:12
--- NOTE | 2018-02-07 12:07 | Medical Nutrition Therapy ---
Nutrition Anthropometrics Weight (Pounds): 200 Weight (Calculated Kilograms): 90.804 Miguel Nutrition Score: Adequate Miguel Nutrition Risk Score: 12 Dietary Referral Nutrition Risk Factors: Unplanned Loss >10lbs Nutrition Risk Comment: Physical Findings Physical Appearance: Obese BMI 30-39 Skin Appearance Skin Appearance: Edema Edema Location Modifier: Right Edema Location: Lower Extremity Type of Edema: Degree of Edema: 1+ Gastrointestinal Symptoms GI Symtoms: Diarrhea, Change in Bowel Pattern Tube Present: Bowel Sounds: Recent Bowel Pattern: Stool Characteristics: Nutritional Diagnosis Nutritional Risk Acuity 2: Dysphagia Past Medical History: Hx CVA, T2DM, pneumonia, cholecystectomy, kidney stones, knee pain, gout, osteoarthriti, neurodegenerative disorder, cerebrovascular disease, Parkinsonian syndrom Nutritional Acuity: 2-Moderate Nutrition Diagnosis: Swallowing Difficulties Nutrition Etiology: Mechanical/Motor Issues Nutrition Problem/Etiology/Sym: Swallowing difficulties as related to mechanical/motor issues as evidenced by Parkinsonian syndrome dx with SPL eval of dyspagia. Energy Requirement: 2970 (25*90*1.1 (TEF)*1.2 activity factor) Adjusted Energy Requirement Re: 2470 (-500 kcal/day for 1# wt loss per week) Protein Requirement: 72 (0.8 g/kg) Fluid Requirement: 2250 (25mL/kg) Diet Type: Dysphagia Stage 1 Nutrition Intervention: Cont diet as ordered, Encourage intake, Obtain Height and Weight Additional Diet Restrictions: OFFER NUTR SUPPLMENT IF NO HIGH PROTEIN FOOD ORDERED OR CONSUMED Diet Comment To RSA: Dysphagia 1 diet, Dysphagia Pureed (IDD 4 Pureed) Nutrition Monitoring & Eval Nutrition Goals: Eat 75-100% Meal Nutrition Follow-Up: Fair Intake, Poor Intake RD Patient Assessment Time: [address] Assessment Type: RD Re-Assessment Patient Nutrition Acuity: 2-Moderate Follow Up Date: Feb 11, 2018 Nutritional Comment: Pt admitted for weakness. Dx with bacterial pnemonia. Hx of T2DM, neurodegenerative disorder, cerebrovascular disease, and Parkinsonian syndrome. Currently on dysphagia 1 diet or pureed diet (IDD 4 Pureed) with no reported intakes at this time. Monitor consistency of food. Pt on insulin for T2DM, gabapentin for Parkinsonian, antibiotics azithromycin and ceftriaxone,antiGERD med pantoprazole, and polyethylene glycol. Whole blood glucose has improved from 159 to 101 mg/dL Hct and Hgb are both low at 25.2, and 8.2, respectively. BUN of 37 and creatinine of 1.40 indicate possible kidney dysfunction. Na of 134 is low, while K of 5.6 and CO2 of 33 are high. Ht at 01/08/18 admission of 68 cm and currenlty wt of 90 kg indicateds BMI of 31. 01/08/18 admission wt of 97 kg and 90 kg weight as of 02/02 indicate a 7% wt loss in 1 month. Obtain new ht and wt to verify. Monitor for improvement.-AKG 02/04 Pt cont on Dysphagia 1 (IDD 4)diet, SPL eval pending. Pt eating 5-50% of small to regular portions. BUN 39, creatinine 1.5, Alb 2.2. Goal is to provide adequate but not excessive protein r/t dx ARF. Will offer nutr supplment if no high protein food ordered or consumed. Will cont to monitor and encourage intake. SHIRLEY 02/07 BUN 28, creatinine 1.1, cont elevated. BG ranging 90's- 150's. Pt on dysphaagia 1 diet with thin liquids, recommend add thicken liquids per SPL eval. Intake average 53% of small portions. Wt 90.9kg. Wt on last admission 01/08: 90.7kg. This did increase to 97kg 01/11 possibly r/t IV fluids. Wt on Sep 2016 was 93gk. Pt has lost 80# from a high weight of 128kg in Nov 2014 but wt appears to be stable this past year. Will cont to monitor and encoruage intake. MG CALVO Feb 07, 2018 11:15
== END 2018-02-07 13:21 | disposition home or self-care (01) | DRG 177 ==
LOC: ER 14:47 → MED 17:34
PROVIDERS: ADMIT Family Medicine; ATTEND Family Medicine
PROC: 5A09357 Assistance with Respiratory Ventilation, Less than 24 Consecutive Hours, Continuous Positive Airway Pressure (ICD-10-PCS; principal; 2018-02-01)
DX: J69.0 Pneumonitis due to inhalation of food and vomit (principal); J96.21 Acute and chronic respiratory failure with hypoxia; N17.9 Acute kidney failure, unspecified; N39.0 Urinary tract infection, site not specified; E87.2 Acidosis; J15.9 Unspecified bacterial pneumonia; K21.9 Gastro-esophageal reflux disease without esophagitis; G20 Parkinson's disease; E11.9 Type 2 diabetes mellitus without complications; F41.8 Other specified anxiety disorders; D50.9 Iron deficiency anemia, unspecified; E86.0 Dehydration; R53.1 Weakness; I67.9 Cerebrovascular disease, unspecified; B95.2 Enterococcus as the cause of diseases classified elsewhere; B96.4 Proteus (mirabilis) (morganii) as the cause of diseases classified elsewhere; Z88.7 Allergy status to serum and vaccine; Z79.4 Long term (current) use of insulin; Z86.73 Personal history of transient ischemic attack (TIA), and cerebral infarction without residual deficits; Z90.49 Acquired absence of other specified parts of digestive tract
CPT/HCPCS: 36415; 36416; 36600; 70450; 71045; 76705; 80202; 81001; 82040; 82247; 82274; 82310; 82374; 82435; 82565; 82607; 82746; 82803; 82947; 82948; 83540; 83550; 83883; 84075; 84132; 84155; 84165; 84295; 84450; 84460; 84484; 84520; 85025; 85045; 85651; 86140; 87040; 87077; 87088; 87186; 87502; 93005; 96360; 99285; A4353; J0456; J0696; J2405; J3370; J7030; J7040; J7050

== ENCOUNTER → 2018-02-01 | Outpatient (CLI) | payer MEDICAID, MEDICARE, OTHER ==
[2016-10-05 08:12] VITALS: BMI 28.6
[~2018-02-01] MED LIST changes: +AMIN30LI PO; +ASPI81TA86 PO; +DOXY-252 PO; +SENN-203 PO
== END ==
LOC: AMB 14:24
PROVIDERS: ATTEND Nurse Practitioner
DX: R50.9 Fever, unspecified (principal); R53.1 Weakness
CPT/HCPCS: A0425; A0429

== ENCOUNTER → 2018-02-14 | Outpatient (CLI) | payer MEDICARE, MEDICAID ==
[2016-10-05 08:12] VITALS: BMI 28.6
[~2018-02-14] MED LIST changes: +AMIN30LI PO; +ASPI81TA86 PO; +BARIUM SULFATE 148 GM POWDER ONE; +BARIUM SULFATE 240 ML ORAL SUS (NECTAR) ONE; +DOXY-252 PO; +SENN-203 PO
--- NOTE | 2018-02-14 16:48 | RADIOLOGY IMAGING REPORT ---
FACILITY: [facility] - [place] PATIENT NAME: Kaitlynn Echeverria : 1945 MR: [id number] V: [id number] EXAM DATE: ORDERING PHYSICIAN: TITA RANKIN TECHNOLOGIST: Location: [facility] - [place] Patient: Kaitlynn Echeverria : 1945 Visit/Account:[id number] Date of Sevice: 02/14/2018 Exam type: ESOPH VIDEO SWALLOWING History: Dysphasia Comparison: None. Findings: The modified barium swallow was formed by the speech pathologist. Fluoroscopic assistance was provid ed. The patient received thin barium and nectar thick barium, barium tablet. Solid soft solids and regular solid foods. There is moderate pharyngeal dysphasia aspiration on thin barium. Please see t cassi speech pathologist report for complete details. The fluoroscopy dose area product was 328.61 micr o-Javed per meter squared IMPRESSION: 1. As above Report Dictated By: Verona Hagen MD at 02/14/2018 4:41 PM Report E-Signed By: Verona Hagen MD at 02/14/2018 4:43 PM WSN:[id number]
--- NOTE | 2018-02-15 10:44 | SLP MODIFIED BARIUM SWALLOW ---
Speech Language Pathology Modified Barium Swallow Evaluation Report Date of Evaluation: 02-14-18 Patient Name: Kaitlynn Echeverria Patient : 1945 Physician: Louisa Dickerson-Sid Clinician: Beatriz Monterroso M.S., CCC-UNDERTAKER ASSISTANT BACKGROUND The patient is a 72 yr old female. She was referred for an MBS following an inpatient stay for general weakness. A chest x-ray on 02-02-18 showed opacification on the left suspicious for pneumonia. Patient was unable to receive an MBS prior to discharge as recommended per ST and returned as OP today to complete the exam. She resides at [facility] in [place] and is nonambulatory. Oxygen Supplementation: Yes. Nasal canula. 2L Level of Consciousness: Alert, responsive. Cognitive/Linguistic: responds appropriately to questions regarding self and situation. Follows instructions Orientation: Demonstrates orientation to person, place, situation Language: patient follow instructions, respond appropriately to direct questions. Speech: dysarthric speech with decreased intelligibility Voice : decreased vocal quality including hoarseness, low volume. -Wet Vocal Quality: No Non-verbal Oral Structure and Function: patient is edentulous. She did not have her dentures during the MBS Pain with Swallow: Denies MODIFIED BARIUM SWALLOW In conjunction with radiology, lateral view with trials of the following consistencies: thin barium liquid, nectar thick barium liquid, barium marked pureed, mechanical soft, and regular food consistencies, and a 1cm barium pill. ORAL STAGE Thin Liquids: no evidence of dysphagia . WNL [place] Thick Liquids: no evidence of dysphagia. WNL. Pureed Foods: no evidence of dysphagia. WNL. Mechanical Soft Foods: patient is edentulous and without dentures. Required mastication is extended. Some difficulty with A-P transit to posterior oral cavity for swallow initiation. Pt resolved issues independently given increased time to complete oral stage. Regular Foods: similar to those of Mechanical Soft Foods trial. PHARYNGEAL STAGE Thin Liquid: immediate penetration and aspiration upon deglutition. Consistent cough response within 1-2 seconds following aspiration effectively cleared majority of aspirated material. No pharyngeal residues. Compensatory: chin tuck not successful. Small sips moderately successful though did not eliminate penetration/aspiration [place] Thick Liquids: no evidence of dysphagia. No pharyngeal residues. WNL. Pureed Food: no evidence of dysphagia. No pharyngeal residues. WNL. Mechanical Soft Foods: no evidence of dysphagia. No pharyngeal residues. WNL . Regular Food Consistency: no evidence of dysphagia. No pharyngeal residues. WNL . Penetration/Aspiration Scale*: Thin liquid: Score of 6= Contrast enters the airway, passes below the vocal folds, and is ejected out of the airway with reflexive cough [place] thick liquids: Score of 1. Contrast does not enter airway Puree: Score of 1. Contrast does not enter airway Soft and regular solids: Score of 1= Contrast does not enter the airway *(Vincent et al. 1996) ESOPHAGEAL STAGE Peristaltic movement appears to be WNL Cervical Esophagus: Materials witnessed clearing from cervical esophagus WNL. Thoracic Esophagus: Materials witnessed clearing from upper/mid/lower thoracic esophagus WNL. JAYSON: none witnessed. BARIUM PILL: 1cm barium pill taken with nectar thickened liquids. No oral, pharyngeal, or esophageal dysphagia witnessed. SUMMARY Aspiration Risk: High. Repeated aspiration of thin liquids witnessed. Successful cough response. Pt demonstrates inadequate airway protection consistent with decreased hyolaryngeal complex movement. Cues for chin tuck to protect airway during thin liquid swallow were not successful at eliminating aspiration Cues for small sips from straw decreased risk 1.Dysphagia Severity Rating Scale (Gramigna, 2006; Ruth et. al., 1990): 2; Mild dysphagia: oropharyngeal dysphagia present, which can be managed by specific swallow suggestions (re-swallow every 1-2 bites/sips). 2. Diet: No need for modification in consistency of diet is indicated. 3. Dysphagia Severity Rating Scale (Gramigna, 2006; Ruth et. al., 1990): 0 Normal swallow mechanism 4. No modification in consistency of diet is indicated. 5. Patient was provided with verbal education regarding swallow anatomy and safe swallow recommendations. RECOMMENDATIONS Verbal and written information provided at time of evaluation to the patient and her care provider from [facility] 1. Speech Therapy: continue with ST at [facility] 2. Diet Modifications: Liquids: [place] thick liquids from cup or straw. Foods: With dentures FILIBERTO. Without dentures mechanical soft. 3. Pills: With nectar thickened liquids 4. Compensatory Techniques: Small sips/bites. Allow for additional time to complete mastication and swallow. Thank you for this referral. Please call [phone] to contact the UNDERTAKER ASSISTANT. Beatriz Monterroso M.S., [facility]-UNDERTAKER ASSISTANT MTDD
== END ==
LOC: RAD 12:57
PROVIDERS: ATTEND Nurse Practitioner Family
DX: R13.10 Dysphagia, unspecified (principal); Y84.4 Aspiration of fluid as the cause of abnormal reaction of the patient, or of later complication, without mention of misadventure at the time of the procedure
CPT/HCPCS: 74230

== ENCOUNTER → 2018-02-15 | Outpatient (REF) | payer MEDICARE, MEDICAID ==
[2016-10-05 08:12] VITALS: BMI 28.6
[~2018-02-15] MED LIST changes: -BARIUM SULFATE 148 GM POWDER ONE; -BARIUM SULFATE 240 ML ORAL SUS (NECTAR) ONE
[2018-02-15 16:59] LABS: PLATELET COUNT, AUTOMATED 375 K/uL (150-450)
== END ==
LOC: ZZLCC 16:10
PROVIDERS: ATTEND Nurse Practitioner Family
DX: F03.90 Unspecified dementia, unspecified severity, without behavioral disturbance, psychotic disturbance, mood disturbance, and anxiety (principal); E11.9 Type 2 diabetes mellitus without complications
CPT/HCPCS: 82040; 82247; 82310; 82374; 82435; 82565; 82947; 84075; 84132; 84155; 84295; 84450; 84460; 84520; 85025

== ENCOUNTER → 2018-02-18 | Outpatient (REF) | payer MEDICARE, MEDICAID ==
[2016-10-05 08:12] VITALS: BMI 28.6
[2018-02-18 18:23] LABS: PLATELET COUNT, AUTOMATED 298 K/uL (150-450)
== END ==
LOC: ZZLCC 18:03
PROVIDERS: ATTEND Nurse Practitioner Family
DX: D64.9 Anemia, unspecified (principal)
CPT/HCPCS: 82040; 82247; 82310; 82374; 82435; 82565; 82607; 82728; 82746; 82947; 83540; 83550; 84075; 84132; 84155; 84295; 84450; 84460; 84520; 85025; 85045

== ENCOUNTER → 2018-02-25 | Outpatient (REF) | payer MEDICARE, MEDICAID ==
[2016-10-05 08:12] VITALS: BMI 28.6
[~2018-02-25] MED LIST changes: +ACET-2146 PO; +BISA10SU62 RC
[2018-02-26 12:35] LABS: PLATELET COUNT, AUTOMATED 202 K/uL (150-450)
== END ==
LOC: ZZSENDIN 16:17
PROVIDERS: ATTEND Nurse Practitioner Family
DX: D64.9 Anemia, unspecified (principal); J17 Pneumonia in diseases classified elsewhere; R13.11 Dysphagia, oral phase; M25.519 Pain in unspecified shoulder; M25.532 Pain in left wrist; I63.9 Cerebral infarction, unspecified; N17.9 Acute kidney failure, unspecified; N39.0 Urinary tract infection, site not specified; R65.21 Severe sepsis with septic shock; I69.391 Dysphagia following cerebral infarction; M62.81 Muscle weakness (generalized); M15.0 Primary generalized (osteo)arthritis; M25.50 Pain in unspecified joint; R49.8 Other voice and resonance disorders; A41.01 Sepsis due to Methicillin susceptible Staphylococcus aureus; E11.9 Type 2 diabetes mellitus without complications; G47.00 Insomnia, unspecified; K59.09 Other constipation; M25.511 Pain in right shoulder; M25.561 Pain in right knee; M25.562 Pain in left knee; R25.1 Tremor, unspecified
CPT/HCPCS: 82728; 83540; 83550; 85025

== ENCOUNTER → 2018-02-25 | Outpatient (CLI) | payer MEDICARE, MEDICAID ==
[2016-10-05 08:12] VITALS: BMI 28.6
--- NOTE | 2018-02-25 12:57 | RADIOLOGY IMAGING REPORT ---
FACILITY: [facility] PATIENT NAME: Kaitlynn Echeverria : 1945 MR: [id number] V: [id number] EXAM DATE: ORDERING PHYSICIAN: TITA RANIKN TECHNOLOGIST: Location: [facility] - [place] Patient: Kaitlynn Echeverria : 1945 Visit/Account:[id number] Date of Sevice: 02/25/2018 2 VIEWS CHEST INDICATION: Pneumonia COMPARISON: X-ray examination of the chest February 05, 2018 FINDINGS: Heart size within normal limits. Normal linear type atelectasis is seen at the left base. No evidence of residual alveolar consolidat ion, effusion or pneumothorax. No acute bony finding. IMPRESSION: 1. Minimal linear atelectasis left base. No focal pneumonia. Report Dictated By: Kaushal Cruz MD at 02/25/2018 12:47 PM Report E-Signed By: Kaushal Cruz MD at 02/25/2018 12:51 PM WSN:[id number]
== END ==
LOC: RAD 12:05
PROVIDERS: ATTEND Nurse Practitioner Family
DX: J98.11 Atelectasis (principal); J18.9 Pneumonia, unspecified organism
CPT/HCPCS: 71046

== ENCOUNTER 2018-03-29 13:25 | Outpatient (RCR) | payer MEDICARE, MEDICAID, OTHER ==
[2016-10-05 08:12] VITALS: Wt 87.0 kg
[2018-03-08 13:39] VITALS: BP 106/65
[2018-03-08 14:45] LABS: PLATELET COUNT, AUTOMATED 189 K/uL (150-450)
--- NOTE | 2018-03-08 18:49 | [facility] ONCOLOGY NOTE ---
EVENT DATE: March 08, 2018 REFERRING PHYSICIAN Serina Pierre, LIG[place], WORKFORCE ANALYST-C REASON FOR CONSULTATION Evaluation and management of normochromic, normocytic anemia. HEMATOLOGY HISTORY The patient is a 72-year-old female with history of stroke and possible parkinsonism who was recently discharged from the hospital. Patient was found to have anemia. Her CBC showed white count 5000, hemoglobin 9.1, hematocrit 27.9, platelets 202,000, and MCV was 85. ESR was 50. Absolute retic was 0.0305. Serum iron was 41, TIBC 239, iron saturation 17.2%, ferritin 308. B12 was 576. Methylmalonic acid assay was 0.12, and serum folate was more than 22. There was a difficulty to communicate with the patient because of her neurological disorder, and she was answering all the questions with "no." PAST MEDICAL HISTORY 1. Stroke times two. 2. Possible parkinsonism. 3. History of pneumonia. 4. Chronic kidney disease. 5. Renal stones. 6. Urinary incontinence. 7. Gout. 8. Osteoarthritis. 9. Depression. 10. Type 2 diabetes. 11. Anemia. PAST SURGICAL HISTORY 1. Cholecystectomy. 2. Tubal ligation. SOCIAL HISTORY Patient is . 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 She is a never smoker. Denies any abuse of alcohol or illicit drugs. FAMILY HISTORY Noncontributory. CURRENT MEDICATIONS 1. Tylenol p.r.n. 2. Bisacodyl one suppository p.r.n. for constipation. 3. Sinemet 25/100 one tablet three times daily. 4. Sennosides 8.6 mg tablet daily. 5. Metformin 500 mg daily. 6. Aspirin 81 mg daily. 7. Tramadol 50 mg twice daily. 8. MiraLAX 17 g daily p.r.n. for constipation. 9. Multivitamins one tablet daily. 10. Neurontin 300 mg twice daily. 11. Omeprazole 20 mg twice daily. ALLERGIES INFLUENZA VIRUS VACCINE which, as per patient, makes her extremely ill. REVIEW OF SYSTEMS CONSTITUTIONAL: No appetite or weight change. No fever, chills, or sweating. No recent infection. HEENT: Ears: No tinnitus or hearing problem. Nose: No nasal discharge or epistaxis. Throat: No sore throat or mouth ulcers. Eyes: No diplopia or visual changes. RESPIRATORY: No shortness of breath. No cough, expectoration, or hemoptysis. CARDIOVASCULAR: No chest pain, orthopnea, or paroxysmal nocturnal dyspnea (PND). No edema. No palpitations. GASTROINTESTINAL: No nausea or vomiting. No diarrhea or constipation. No change in bowel movements. No heartburn or swallowing difficulties. No abdominal pain. No jaundice. No hematemesis, melena, or rectal bleeding. GENITOURINARY: No hematuria or dysuria. MUSCULOSKELETAL: No pain in the muscles, joints, or bones. NEUROLOGICAL: No tingling or numbness in the hands or feet. No headaches or convulsions. HEMATOLOGIC/LYMPHATIC: No bleeding or easy bruising. No weakness or fatigue. No enlarged lymph nodes. SKIN: No skin rash or lumps. PSYCHIATRIC: No anxiety or depression. PHYSICAL EXAMINATION GENERAL: Looks stable. Well developed, well nourished, and in no acute distress. VITAL SIGNS: Blood pressure 106/65, pulse 69 per minute, respirations 16 per minute, temperature 98.3, pulse ox 94% on 2L oxygen. HEENT: Head: Atraumatic. No sinus tenderness to palpation. Eyes: No icterus or conjunctivitis. Mouth and throat: No oral thrush or mucositis. NECK: Supple. No cervical or supraclavicular lymphadenopathy. LUNGS: Clear to auscultation and percussion bilaterally. HEART: Regular rate and rhythm. No gallops, murmurs, clicks, or rubs. ABDOMEN: Soft and lax. No tenderness. No hepatosplenomegaly. No masses. EXTREMITIES: No cyanosis, clubbing, or edema. LYMPHATICS: No peripheral lymphadenopathy. NEUROLOGICAL: Conscious, alert, and oriented times three. The patient has a masked face, consistent with possible parkinsonism. PSYCHIATRIC: Mood and affect appear normal. SKIN: No skin rash, bruise. or purpuric eruption. ASSESSMENT Normochromic, normocytic anemia. Could be multifactorial in origin. This could be nutritional due to B12 and folate deficiencies or iron deficiencies, but bone marrow disease like myelodysplastic syndrome or bone marrow infiltration could also be possibilities. I think anemia of chronic disease is also a possibility. I am planning to check her CBC and reticulocyte count, CMP. I am planning also to check her iron studies with ferritin, B12, methylmalonic acid assay, folate, and red cell folate. I also will check her serum protein immunoelectrophoresis and erythropoietin level and soluble transferrin receptor assay. I will consider bone marrow aspiration biopsy if those tests come back negative. I explained that to the patient and caregiver. They are agreeable with the plan of management. PLAN 1. CBC, retic count. 2. CMP. 3. Iron studies with ferritin. 4. Vitamin B12 level and methylmalonic acid assay. 5. Serum folate and red cell folate. 6. Erythropoietin level. 7. Serum protein immune electrophoresis. 8. Consider bone marrow aspiration biopsy. 9. Haptoglobin level. 10. Patient to return after the above for further evaluation and management. 11. Patient to contact us for any new concerns or complaints. LENKAD
[2018-03-29 13:34] VITALS: BP 101/64
--- NOTE | 2018-03-29 20:18 | [facility] ONCOLOGY NOTE ---
EVENT DATE: March 29, 2018 DIAGNOSIS Normochromic, normocytic anemia. CHIEF COMPLAINT Patient is here today to discuss the result of her workup for her anemia. HEMATOLOGY HISTORY The patient is a 72-year-old female with history of stroke and possible parkinsonism who was recently discharged from the hospital. Patient was found to have anemia. Her CBC showed white count 5000, hemoglobin 9.1, hematocrit 27.9, platelets 202,000, and MCV was 85. ESR was 50. Absolute retic was 0.0305. Serum iron was 41, TIBC 239, iron saturation 17.2%, ferritin 308. B12 was 576. Methylmalonic acid assay was 0.12, and serum folate was more than 22. There was a difficulty to communicate with the patient because of her neurological disorder, and she was answering all the questions with "no." Basic workup for the anemia including iron studies with ferritin, B12, methylmalonic acid assay, folic acid level, red cell folate, erythropoietin level, serum protein immunoelectrophoresis all came within the range except ferritin high at 418. Her IgA level was mildly elevated at 507. Haptoglobin was normal at 155 hemolytic anemia. Repeat CBC showed white count 6.4, hemoglobin 10, hematocrit 30.2, platelets 189,000, and MCV 86.1. HISTORY OF PRESENT ILLNESS Patient is here today for followup of her normochromic, normocytic anemia. She is totally asymptomatic according to her answers, which are always "no" for all the questions, and I am not sure if she has any complaints or not because of her neurological disease. PAST MEDICAL HISTORY 1. Stroke x2. 2. Possible parkinsonism. 3. History of pneumonia. 4. Chronic kidney disease. 5. Renal stones. 6. Urinary incontinence. 7. Gout. 8. Osteoarthritis. 9. Depression. 10. Type 2 diabetes. 11. Anemia. PAST SURGICAL HISTORY 1. Cholecystectomy. 2. Tubal ligation. SOCIAL HISTORY Patient is . 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 She is a never smoker. Denies any abuse of alcohol or illicit drugs. FAMILY HISTORY Noncontributory. CURRENT MEDICATIONS 1. Tylenol p.r.n. 2. Bisacodyl one suppository p.r.n. for constipation. 3. Sinemet 25/100 one tablet three times daily. 4. Sennosides 8.6 mg tablet daily. 5. Metformin 500 mg daily. 6. Aspirin 81 mg daily. 7. Tramadol 50 mg twice daily. 8. MiraLAX 17 g daily p.r.n. for constipation. 9. Multivitamins one tablet daily. 10. Neurontin 300 mg twice daily. 11. Omeprazole 20 mg twice daily. ALLERGIES INFLUENZA VIRUS VACCINE which, as per patient, makes her extremely ill. REVIEW OF SYSTEMS CONSTITUTIONAL: No appetite or weight change. No fever, chills, or sweating. No recent infection. HEENT: Ears: No tinnitus or hearing problem. Nose: No nasal discharge or epistaxis. Throat: No sore throat or mouth ulcers. Eyes: No diplopia or visual changes. RESPIRATORY: No shortness of breath. No cough, expectoration, or hemoptysis. CARDIOVASCULAR: No chest pain, orthopnea, or paroxysmal nocturnal dyspnea (PND). No edema. No palpitations. GASTROINTESTINAL: No nausea or vomiting. No diarrhea or constipation. No change in bowel movements. No heartburn or swallowing difficulties. No abdominal pain. No jaundice. No hematemesis, melena, or rectal bleeding. GENITOURINARY: No hematuria or dysuria. MUSCULOSKELETAL: No pain in the muscles, joints, or bones. NEUROLOGICAL: No tingling or numbness in the hands or feet. No headaches or convulsions. HEMATOLOGIC/LYMPHATIC: No bleeding or easy bruising. No weakness or fatigue. No enlarged lymph nodes. SKIN: No skin rash or lumps. PSYCHIATRIC: No anxiety or depression. PHYSICAL EXAMINATION GENERAL: Looks stable. Well developed, well nourished, and in no acute distress. VITAL SIGNS: Blood pressure 101/64, pulse 87 per minute, respirations 16 per minute, temperature 97.5, pulse ox 98% on 2L oxygen. HEENT: Head: Atraumatic. No sinus tenderness to palpation. Eyes: No icterus or conjunctivitis. Mouth and throat: No oral thrush or mucositis. NECK: Supple. No cervical or supraclavicular lymphadenopathy. LUNGS: Clear to auscultation and percussion bilaterally. HEART: Regular rate and rhythm. No gallops, murmurs, clicks, or rubs. ABDOMEN: Soft and lax. No tenderness. No hepatosplenomegaly. No masses. EXTREMITIES: No cyanosis, clubbing, or edema. LYMPHATICS: No peripheral lymphadenopathy. NEUROLOGICAL: Conscious, alert, and oriented x3. No focal motor or sensory deficits. PSYCHIATRIC: Mood and affect appear normal. SKIN: No skin rash, bruise, or purpuric eruption. DIAGNOSTIC DATA CBC showed white count 6.4, hemoglobin 10, hematocrit 30.2, platelets 189,000, MCV 86.1. Absolute retic was 0.0528, haptoglobin 155. Ferritin 418, serum iron 41, TIBC 239, iron saturation 17.2. Methylmalonic acid assay was normal at 0.26. Serum protein immunoelectrophoresis showed polyclonal increase in IgA. No monoclonal protein detected. ASSESSMENT Normochromic, normocytic anemia with basic workup for the anemia returned as to be totally normal except for mildly elevated ferritin at 418. It seems that patient could have anemia of chronic disease or inflammatory anemia, and I see her hemoglobin improved on its own up to 10 g/dL currently. Given this information, I am planning to monitor her CBC. I am planning to check her CBC in six weeks, and I will see the patient in three months with CBC. If the patient will have deterioration of her count in the future, I am planning to proceed with bone marrow aspiration biopsy for further investigation. I explained that to the caregiver who came with the patient. She is agreeable with the plan of management. PLAN 1. Continue followup. 2. CBC in six weeks. 3. Patient to return in three months with CBC. 4. Patient to contact us for any new concern or complaints. ANEL
[2018-04-24] MEDS ORDERED: TRAM-420 PO (13:23)
== END 2018-06-06 ==
LOC: ONC 13:25
PROVIDERS: ATTEND Internal Medicine Hematology
DX: D64.9 Anemia, unspecified (principal); F32.9 Major depressive disorder, single episode, unspecified; M19.90 Unspecified osteoarthritis, unspecified site; N18.9 Chronic kidney disease, unspecified; Z79.84 Long term (current) use of oral hypoglycemic drugs; Z86.73 Personal history of transient ischemic attack (TIA), and cerebral infarction without residual deficits; Z79.82 Long term (current) use of aspirin; E11.22 Type 2 diabetes mellitus with diabetic chronic kidney disease
CPT/HCPCS: 36415; 82607; 82668; 82728; 82746; 82747; 83010; 83540; 83550; 83921; 84165; 84238; 85025; 85045; 86334; 99202; G0463; 82040; 82247; 82310; 82374; 82435; 82565; 82947; 84075; 84132; 84155; 84295; 84450; 84460; 84520; 99212

== ENCOUNTER → 2018-04-15 | Outpatient (REF) | payer MEDICARE, MEDICAID, OTHER ==
[2016-10-05 08:12] VITALS: BMI 28.6
== END ==
LOC: ZZLCC 11:39
PROVIDERS: ATTEND Nurse Practitioner Family
DX: D64.9 Anemia, unspecified (principal); E11.9 Type 2 diabetes mellitus without complications
CPT/HCPCS: 82040; 82247; 82310; 82374; 82435; 82565; 82947; 83036; 84075; 84132; 84155; 84295; 84450; 84460; 84520; 85027

== ENCOUNTER → 2018-05-11 | Outpatient (REF) | payer MEDICARE, MEDICAID, OTHER ==
[2016-10-05 08:12] VITALS: BMI 28.6
== END ==
LOC: ZZLCC 13:08
PROVIDERS: ATTEND Nurse Practitioner Family
DX: E11.9 Type 2 diabetes mellitus without complications (principal); G31.9 Degenerative disease of nervous system, unspecified
CPT/HCPCS: 85027

== ENCOUNTER → 2018-06-26 | Outpatient (REF) | payer MEDICARE, MEDICAID, OTHER ==
[2016-10-05 08:12] VITALS: BMI 28.6
== END ==
LOC: ZZLCC 16:42
PROVIDERS: ATTEND Nurse Practitioner Family
DX: D64.9 Anemia, unspecified (principal)
CPT/HCPCS: 85027; 85045

== ENCOUNTER 2018-06-27 14:00 | Outpatient (RCR) | payer MEDICARE, MEDICAID, OTHER ==
[2016-10-05 08:12] VITALS: BMI 28.6
[~2018-06-27 14:00] MED LIST changes: -OMEP-125 PO; +OMEP-126 PO; -PROM12.556 PO; +PROM12.557 PO
[2018-06-27 14:13] VITALS: BP 92/57
--- NOTE | 2018-06-28 01:45 | [facility] ONCOLOGY NOTE ---
EVENT DATE: June 27, 2018 DIAGNOSIS Normochromic, normocytic anemia. CHIEF COMPLAINT Patient is here today for followup of her anemia. HEMATOLOGY HISTORY The patient is a 72-year-old female with history of stroke and possible parkinsonism, who was recently discharged from the hospital. Patient was found to have anemia. Her CBC showed white count 5000, hemoglobin 9.1, hematocrit 27.9, platelets 202,000, and MCV was 85. ESR was 50. Absolute reticulocyte count was 0.0305. Serum iron was 41, TIBC 239, iron saturation 17.2%, ferritin 308. B12 was 576. Methylmalonic acid assay was 0.12, and serum folate was more than 22. There was a difficulty to communicate with the patient because of her neurological disorder, and she was answering all the questions with "no." Basic workup for the anemia including iron studies with ferritin, B12, methylmalonic acid assay, folic acid level, red cell folate, erythropoietin level, serum protein immunoelectrophoresis all came within the range except ferritin high at 418. Her IgA level was mildly elevated at 507. Haptoglobin was normal at 155. Repeat CBC showed white count 6.4, hemoglobin 10, hematocrit 30.2, platelets 189,000, and MCV 86.1. HISTORY OF PRESENT ILLNESS Patient is here today for followup of her normochromic, normocytic anemia. Patient is doing fine currently, and she is asymptomatic except for having pain in her knees and her tremors from supranuclear palsy. Patient is going to move out of town by the end of the month. PAST MEDICAL HISTORY 1. Stroke x2. 2. Possible parkinsonism. 3. History of pneumonia. 4. Chronic kidney disease. 5. Renal stones. 6. Urinary incontinence. 7. Gout. 8. Osteoarthritis. 9. Depression. 10. Type 2 diabetes. 11. Anemia. PAST SURGICAL HISTORY 1. Cholecystectomy. 2. Tubal ligation. SOCIAL HISTORY Patient is . 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 She is a never smoker. Denies any abuse of alcohol or illicit drugs. FAMILY HISTORY Noncontributory. CURRENT MEDICATIONS 1. Tylenol p.r.n. 2. Bisacodyl one suppository p.r.n. for constipation. 3. Sinemet 25/100 one tablet three times daily. 4. Sennosides 8.6 mg tablet daily. 5. Metformin 500 mg daily. 6. Aspirin 81 mg daily. 7. Tramadol 50 mg twice daily. 8. MiraLAX 17 g daily p.r.n. for constipation. 9. Multivitamins one tablet daily. 10. Neurontin 300 mg twice daily. 11. Omeprazole 20 mg twice daily. ALLERGIES INFLUENZA VIRUS VACCINE which, as per patient, makes her extremely ill. REVIEW OF SYSTEMS CONSTITUTIONAL: No appetite or weight change. No fever, chills or sweating. No recent infection. HEENT: Ears: No tinnitus or hearing problem. Nose: No nasal discharge or epistaxis. Throat: No sore throat or mouth ulcers. Eyes: No diplopia or visual changes. RESPIRATORY: No shortness of breath. No cough, expectoration or hemoptysis. CARDIOVASCULAR: No chest pain, orthopnea, or paroxysmal nocturnal dyspnea (PND). No edema. No palpitations. GASTROINTESTINAL: No nausea or vomiting. No diarrhea or constipation. No change in bowel movements. No heartburn or swallowing difficulties. No abdominal pain. No jaundice. No hematemesis, melena or rectal bleeding. GENITOURINARY: No hematuria or dysuria. MUSCULOSKELETAL: Patient has pain in her knees. NEUROLOGICAL: No tingling or numbness in the hands or feet. No headaches or convulsions. HEMATOLOGIC/LYMPHATIC: No bleeding or easy bruising. No weakness or fatigued. No enlarged lymph nodes. SKIN: No skin rash or lumps. PSYCHIATRIC: No anxiety or depression. PHYSICAL EXAMINATION GENERAL: Looks stable. Well-developed, well-nourished, and in no acute distress. VITAL SIGNS: Blood pressure 92/57, pulse 71 per minute, respirations 16 per minute, temperature 99.1, pulse ox 98% on room air. HEENT: Head: Atraumatic. No sinus tenderness to palpation. Eyes: No icterus or conjunctivitis. Mouth and throat: No oral thrush or mucositis. NECK: Supple. No cervical or supraclavicular lymphadenopathy. LUNGS: Clear to auscultation and percussion bilaterally. HEART: Regular rate and rhythm. No gallops, murmurs, clicks or rubs. ABDOMEN: Soft and lax. No tenderness. No hepatosplenomegaly. No masses. EXTREMITIES: No cyanosis, clubbing or edema. LYMPHATICS: No peripheral lymphadenopathy. NEUROLOGICAL: Conscious, alert and oriented times three. No focal motor or sensory deficits. PSYCHIATRIC: Mood and affect appear normal. SKIN: No skin rash, bruise or purpuric eruption. DIAGNOSTIC DATA CBC showed white count 8.5, hemoglobin 10.6, hematocrit 30.9, platelets 296,000. ASSESSMENT Normochromic, normocytic anemia. Basic workup for the anemia was normal except for mildly elevated ferritin at 418. It seems that the patient could have anemia of chronic disease or inflammatory anemia, and if her hemoglobin deteriorates in the future, I am planning to proceed with bone marrow aspiration biopsy to complete her workup for the anemia, but her hemoglobin currently is 10.6 g/dL, which is up from 10 g/dL with her last visit. Patient is going to move out of town soon, and I advised her and her caregiver to request her records when she is moving to the new place. PLAN Patient to continue followup after her move with a new doctor when she has settled down. My plan is to consider bone marrow aspiration biopsy to complete the workup of her anemia if she will develop deterioration of her hemoglobin in the future. ANEL
== END 2018-08-12 15:46 | disposition home or self-care (01) ==
LOC: ONC 14:00
PROVIDERS: ATTEND Internal Medicine Hematology
DX: D64.9 Anemia, unspecified (principal); F32.9 Major depressive disorder, single episode, unspecified; M19.90 Unspecified osteoarthritis, unspecified site; N18.9 Chronic kidney disease, unspecified; Z79.84 Long term (current) use of oral hypoglycemic drugs; Z86.73 Personal history of transient ischemic attack (TIA), and cerebral infarction without residual deficits; Z79.82 Long term (current) use of aspirin; E11.22 Type 2 diabetes mellitus with diabetic chronic kidney disease
CPT/HCPCS: 99212

== ENCOUNTER → 2018-07-05 | Outpatient (REF) | payer MEDICARE, MEDICAID, OTHER ==
[2016-10-05 08:12] VITALS: BMI 28.6
[~2018-07-05] MED LIST changes: +OMEP-125 PO; -OMEP-126 PO; +PROM12.556 PO; -PROM12.557 PO
[2018-07-05 11:34] LABS: PLATELET COUNT, AUTOMATED 81 K/uL (150-450)
== END ==
LOC: ZZLCC 10:58
PROVIDERS: ATTEND Nurse Practitioner Family
DX: D64.9 Anemia, unspecified (principal); E11.9 Type 2 diabetes mellitus without complications
CPT/HCPCS: 82607; 82728; 82746; 83540; 83550; 85014; 85018; 85025